=== PATIENT | male | born 1940 | race Caucasian/White ===

== ENCOUNTER 2020-02-25 12:35 | Observation (INO) | payer MEDICARE ==
[~2020-02-25] VITALS: Ht 177.8 cm; Wt 107.5 kg
[~2020-02-25 12:35] MED LIST: ASPIRIN81 MG; CENTRUM CHEWAB1 EAC1 PO; HYDROCHLOROTHIA25 MG PO; MAGNESIUM250 M1 PO; METFORMIN HCL500 M2 PO; METOPROLOL SUCC50 MG PO; OLMESARTAN MEDO20 MG PO; POTASSIUM99 M1 PO
--- OUTSIDE RECORDS SUMMARY | 2020-02-25 12:38 | XMS REPORT | Clinical Summary ---
Author Author [facility] Organization [facility] Address Unknown Phone Unavailable Care Team Providers Care Director Emergency Services Name Role Phone Julissa Banerjee MD PCP Allergies No Known Allergies Medications End Date Status Medication Sig Dispensed Refills Start Date Active furosemide (LASIX) 20 mg Take 20 mg by 0 tablet mouth 2 (two) times a day. Active metoprolol succinate XL Take 50 mg by 0 (TOPROL-XL) 50 mg 24 hr mouth 2 (two) tablet times a day. Active metFORMIN (GLUCOPHAGE) Take 500 mg 0 500 mg tablet by mouth daily with breakfast. Active terazosin (HYTRIN) 1 MG Take 1 mg by 0 capsule mouth nightly. Active loratadine (CLARITIN) 10 Take 10 mg by 0 mg tablet mouth daily. Active hydroCHLOROthiazide 0 (HYDRODIURIL) 25 MG 8 tablet Active Problems Problem Noted Date Symptomatic anemia 01/16/2018 Family History Relation Name Status Comments Father Mother Social History Date Tobacco Use Types Packs/Day Years Used Never Smoker Smokeless Tobacco: Never Used Drinks/Week oz/Week Comments Alcohol Use No Sex Assigned at Date Recorded Not on file Industry Job Start Date Occupation Not on file Not on file Not on file Travel End Travel History Travel Start No recent travel history available. Last Filed Vital Signs Not on file Plan of Treatment Health Maintenance Due Date Last Done Comments SHINGLES VACCINES (#1) 02/23/1990 65+ PNEUMOCOCCAL VACCINE 02/23/2005 (1 of 2 - PCV13) INFLUENZA VACCINE 02/08/2020 Results Not on fileafter 2019 Insurance Type Payer Benefit Subscriber ID Effective Phone Address Plan / Dates Group HMO [employer] C[employer] xxxxxxxxx 2017-P [employer] resent [place] HMO MCR ADV Advance Directives For more information, please contact: [phone] Patient Making Department Preparer Explanation Type Date Recorded Advance Directives, 01/16/2018 9:11 PM Living Will and Medical Power of Equipment Validation Specialist
--- OUTSIDE RECORDS SUMMARY | 2020-02-25 12:38 | XMS REPORT | Continuity of Care Document ---
Author Author [facility] Organization [facility] Address [address] [place] [address] Phone Unavailable Care Team Providers Care Trauma Nurse Name Role Phone Chriss PICKETT, Marcelino Costa PCP Payers Payer Name Policy Type Policy Number Effective Date Expiration Date S ource Problems Condition Name Condition Details Condition Category Status Onset Date Resolution Date Last Treatment Date Treating Clinician Comments Source Symptomatic anemia Symptomatic anemia Disease Active 2018-01-16 00:00:0 0 Antonio Balderas Allergies, Adverse Reactions, Alerts Allergy Name Allergy Type Status Severity Reaction(s) Onset Date Inacti ve Date Treating Clinician Comments Source No Known Allergies DA Active U 2019-05-18 00:00:00 [facility] Social History Social Habit Start Date Stop Date Quantity Comments Source Sex Assigned At Rafal zavala Sherrie Alcohol intake 2018-02-19 00:00:00 2018-02-19 00:00:00 Current non-drinker of alcohol (finding) Antonio Balderas Smoking Status Start Date Stop Date Source Never smoker Antonio best Medications Ordered Medication Name Filled Medication Name Start Date Stop Da te Current Medication? Ordering Clinician Indication Dosage Frequency Signature (SIG) Comments Components Source furosemide (LASIX) 20 mg tablet 2018-02-19 14:42:19 Yes 20mg Q.5D Take 20 mg by mouth 2 (two) times a day. Lorne Balderas metoprolol succinate XL (TOPROL-XL) 50 mg 24 hr tablet 2018-02-19 14:42:19 Yes 50mg Q.5D Take 50 mg by mouth 2 (two) times a day. Antonio Balderas metFORMIN (GLUCOPHAGE) 500 mg tablet 2018-02-19 14:42:19 Ye s 500mg QD Take 500 mg by mouth daily with breakfast. Antonio Balderas terazosin (HYTRIN) 1 MG capsule 2018-02-19 14:42:19 Yes 1mg QD Take 1 mg by mouth nightly. Antonio Balderas loratadine (CLARITIN) 10 mg tablet 2018-02-19 14:42:19 Yes 10mg QD Take 10 mg by mouth daily. Antonio Balderas hydroCHLOROthiazide (HYDRODIURIL) 25 MG tablet 2018-02-04 00:00: [address] Procedures This patient has no known procedures. Plan of Care Planned Activity Planned Date Details Comments Source Future Scheduled Test 2020-02-08 00:00:00 INFLUENZA VACCINE [code = INFLUENZA VACCINE] Antonio Balderas Future Scheduled Test 2005-02-23 00:00:00 65+ PNEUMOCOCCAL V ACCINE (1 of 2 - PCV13) [code = 65+ PNEUMOCOCCAL VACCINE (1 of 2 - PCV13)] Antonio Balderas Future Scheduled Test 1990-02-23 00:00:00 SHINGLES VACCINES (#1) [code = SHINGLES VACCINES (#1)] Antonio Balderas Results Test Description Test Time Test Comments Results Result Comments Source GLUBED 2019-05-27 13:08:00 Test Item GLUBED (test code = GLUBED) 94 mg/dL 74-106 N Performed by certified dorr operator at [facility] [id number] 05:48:00* Test Item Value Reference Range Interpretation Comments GLUBED (test code = GLUBED) 97 mg/dL 74-106 N Performed by certified dorr operator at [facility] [id number] 21:20:00* Test Item Value Reference Range Interpretation Comments GLUBED (test code = GLUBED) 111 mg/dL 74-106 H Performed by certified dorr operator at [facility] [id number] 16:55:00* Test Item Value Reference Range Interpretation Comments GLUBED (test code = GLUBED) 127 mg/dL 74-106 H Performed by certified dorr operator at [facility] [id number] 16:55:00* Test Item Value Reference Range Interpretation Comments GLUBED (test code = GLUBED) 111 mg/dL 74-106 H Performed by certified dorr operator at [facility] [id number] 13:36:00 RUN DATE: 05/26/19 [facility] - Lab PAGE 1 RUN TIME: 1336 Specimen Inqui ry RUN USER: INTERFACE PATIENT: JESUS MANUEL VU ACCT #: [id number] LOC: [facility] U #: [id number] AGE/SX: 79/M ROOM: 2045 RE05/18/19REG DR: Duran Daley MD : 40 BED: B DIS: STATUS: ADM IN TLOC: SPEC #: [id number] RECD: 05/25/19 STATUS: SOUSam REQ #: [id number] DANIE: 05/24/19- SUBM DR: Ramiro March MD ENTERED: 05/25/19 SP TYPE: STOMACH OTHR DR: Artur Banerjee MD ORDERED: GROSS COPIES TO: Ramiro March MD [address] [place], [place] [address] Julissa Banerjee MD [address] [place] [address] PROCEDURES: GROSS (05/09 01/25-1042) TISSUES: 1. DUODENUM, NOS - BX 2. DESCENDING COLON - POLYP 3. CECUM, NOS - POLYP 4. TRANSVERSE COLON - POLYP CLINICAL HISTORY COLLECTION DATE: 05/24/19 ANEMIA FINAL DIAGN OSIS Duodenum, biopsy: CHRONIC DUODENITIS ASSOCIATED WITH GIARDIASIS NO HISTOLOGIC FEATURES OF CELIAC DISEASE IDENTIFIED NEGATIVE FOR DY SPLASIA OR MALIGNANCY Descending colon polyp, polypectomy: HYPERPLA STIC POLYP WITH CHRONIC INACTIVE INFLAMMATION NO MICROORGANISMS, DYSPLASI A OR MALIGNANCY IDENTIFIED Cecal polyp, polypectomy: ADENOMATOU S POLYP NEGATIVE FOR HIGH GRADE DYSPLASIA OR MALIGNANCY Transverse colon polyp, polypectomy: CONTINUED ON NEXT PA GE RUN DATE: 05/26/19 [facility] - Lab PAGE 2 RUN TIME: 1336 Specimen Inquiry RUN USER: INTERFACE SPEC #: [id number] PATIENT: JESUS MANUEL VU GENE #[id number] (Continued) FINAL YODIT GNOSIS (Continued) TUBULOVILLOUS ADENOMA NEGATIVE FOR H IGH GRADE DYSPLASIA OR MALIGNANCY FA/sm D [id number] MACROS COPIC The first specimen is received in formalin, labeled with the patient's name, and identified as "duodenum", and consists of mix-pale yellow biopsy tis victor manuel measuring 0.3 cm, submitted as (1). The second specimen is received in formalin, labeled with the patient's name, and identified as "descending co vick polyp", and consists of mix-light green material measuring 0.3 cm in aggre gate compatible with fecal material and mix material/tissue measuring 0.5 cm i n aggregate. The larger biopsy fragment is bisected and the tissue is submitt ed as (2). The third specimen is received in formalin, labeled with the pa tiemaurice's name, and identified as "cecum polyp ", and consists of mix biopsy tis victor manuel measuring 0.3 cm, submitted as (3). The fourth specimen is received in formalin, labeled with the patient's name, and identified as "transverse po lyp", and consists of pink-mix nodular portions of tissue ranging from 0.4 to 0.6 cm in diameter and separate fragments of mix tissue measuring 0.3 cm in ag gregate. The base of the three larger portions are inked green, blue and tiffani k. These portions are bisected and the tissue is submitted as (4). GROSS PERFORMED AT [facility] [address] [place] [address] (p)[phone] MICROSCOPIC Intradepartmental consultation of specimen four: DMW. All of the stains, including any controls performed, stain appropriately. [place] CROSCOPIC PERFORMED AT [facility] [address] [facility] CONTINUED ON NEXT PAGE RUN DATE: 05/26/19 [facility] - Lab PAGE 3 RUN TIME: 1336 Specimen Inqui ry RUN USER: INTERFACE SPEC #: [id number] PATIENT: HORACEJESUS MANUEL SHARMA #[id number] (Continued) MICROSCOPIC (Continued) [place] [address] (P)[phone] PERFORMING SITE Diagnosis performed at: [facility], RAPHAEL [address] [facility] [place] [address] Signed SIGNATURE ON FILE Esteban Hay MD 05/26/19 1336 END OF REPORT [id number] 06:47:00* Test Item Value Reference Range Interpretation Comments GLUBED (test code = GLUBED) 117 mg/dL 74-106 H Performed by certified dorr operator at [facility] COMPREHENSIVE METABOLIC [id number] 05:35:00* Test Item Value Reference Range Interpretation Comments SODIUM (test code = NA) 142 mmol/L 136-145 N POTASSIUM (test code = K) 4.0 mmol/L 3.5-5.1 N CHLORIDE (test code = CL) 110.0 mmol/L 98-107 H CARBON DIOXIDE (test code = CO2) 26.0 mmol/L 21-32 N ANION GAP (test code = GAP) 10.0 10-20 N GLUCOSE (test code = GLU) 107 mg/dL 74-106 H BLOOD UREA NITROGEN (test code = BUN) 21 mg/dL 7-18 H GLOMERULAR FILTRATION RATE (test code = GFR) 58 mL/min >=60 Estimated GFR by using Modified MDRD formula.Chronic kidney disease is defined as either kidney damageor GFR <60 mL/min/1.73 m2 for >3 months. CREATININE (test code = CREAT) 1.20 mg/dL 0.7-1.3 N BUN/CREATININE RATIO (test code = BUN/CREA) 17.8 10-20 N TOTAL PROTEIN (test code = PROT) 5.3 gram/dL 6.4-8.2 L ALBUMIN (test code = ALB) 2.3 g/dL 3.4-5.0 L GLOBULIN (test code = GLOB) 3.0 gram/dL 2.7-4.2 N ALBUMIN/GLOBULIN RATIO (test code = A/G) 0.8 0.75-1.50 N CALCIUM (test code = CA) 8.1 mg/dL 8.5-10.1 L BILIRUBIN TOTAL (test code = BILT) 1.00 mg/dL 0.0-1.0 N SGOT/AST (test code = AST) 16 IUnit/L 15-37 N SGPT/ALT (test code = ALT) 18 IUnit/L 12-78 N ALKALINE PHOSPHATASE TOTAL (test code = ALKP) 102 IUnit/L 45-117 N Note change in reference range due to change in reagent. COMPREHENSIVE METABOLIC [id number] 05:18:00* Test Item Value Reference Range Interpretation Comments SODIUM (test code = NA) 142 mmol/L 136-145 N POTASSIUM (test code = K) 4.0 mmol/L 3.5-5.1 N CHLORIDE (test code = CL) 110.0 mmol/L 98-107 H CARBON DIOXIDE (test code = CO2) mmol/L 21-32 ANION GAP (test code = GAP) 10-20 GLUCOSE (test code = GLU) mg/dL 74-106 BLOOD UREA NITROGEN (test code = BUN) mg/dL 7-18 GLOMERULAR FILTRATION RATE (test code = GFR) mL/min >=60 CREATININE (test code = CREAT) mg/dL 0.7-1.3 BUN/CREATININE RATIO (test code = BUN/CREA) 10-20 TOTAL PROTEIN (test code = PROT) gram/dL 6.4-8.2 ALBUMIN (test code = ALB) g/dL 3.4-5.0 GLOBULIN (test code = GLOB) gram/dL 2.7-4.2 ALBUMIN/GLOBULIN RATIO (test code = A/G) 0.75-1.50 CALCIUM (test code = CA) mg/dL 8.5-10.1 BILIRUBIN TOTAL (test code = BILT) mg/dL 0.0-1.0 SGOT/AST (test code = AST) IUnit/L 15-37 SGPT/ALT (test code = ALT) IUnit/L 12-78 ALKALINE PHOSPHATASE TOTAL (test code = ALKP) IUnit/L 45-117 CBC W/AUTO [id number] 05:05:00* Test Item Value Reference Range Interpretation Comments WHITE BLOOD CELL (test code = WBC) 5.1 K/mm3 4.5-12.5 N RED BLOOD CELL (test code = RBC) 2.83 mill/mm3 4.0-5.8 L HEMOGLOBIN (test code = HGB) 8.7 gram/dL 13.0-17.5 L HEMATOCRIT (test code = HCT) 26.5 % 42.0-52.0 L MEAN CELL VOLUME (test code = MCV) 93.6 fL 80-98 N MEAN CELL HGB (test code = MCH) 30.7 picogram 27.0-33.0 N MEAN CELL HGB CONCETRATION (test code = MCHC) 32.8 gram/dL 33.0-36. 0 L RED CELL DISTRIBUTION WIDTH (test code = RDW) 18.8 % 11.6-16. 2 H RED CELL DISTRIBUTION WIDTH SD (test code = RDW-SD) 61.6 fL 37 .0-51.0 H PLATELET COUNT (test code = PLT) 253 K/mm3 150-450 N MEAN PLATELET VOLUME (test code = MPV) 9.8 fL 6.7-11.0 N NEUTROPHIL % (test code = NT%) 88.4 % 39.0-69.0 H IMMATURE GRANULOCYTE % (test code = IG%) 0.4 % 0.0-5.0 N LYMPHOCYTE % (test code = LY%) 2.0 % 25.0-55.0 L MONOCYTE % (test code = MO%) 4.9 % 0.0-10.0 N EOSINOPHIL % (test code = EO%) 3.7 % 0.0-5.0 N BASOPHIL % (test code = BA%) 0.6 % 0.0-1.0 N NUCLEATED RBC % (test code = NRBC%) 0.0 % 0-0 N NEUTROPHIL # (test code = NT#) 4.50 K/mm3 1.8-7.7 N IMMATURE GRANULOCYTE # (test code = IG#) 0.02 x10 3/uL 0-0.03 N LYMPHOCYTE # (test code = LY#) 0.10 K/mm3 1.0-5.0 L MONOCYTE # (test code = MO#) 0.25 K/mm3 0-0.8 N EOSINOPHIL # (test code = EO#) 0.19 K/mm3 0.0-0.5 N BASOPHIL # (test code = BA#) 0.03 K/mm3 0.0-0.2 N NUCLEATED RBC # (test code = NRBC#) 0.00 K/mm3 0.0-0.1 N [id number] 21:17:00* Test Item Value Reference Range Interpretation Comments GLUBED (test code = GLUBED) 115 mg/dL 74-106 H Performed by certified dorr operator at [facility] [id number] 18:38:00* Test Item Value Reference Range Interpretation Comments GLUBED (test code = GLUBED) 137 mg/dL 74-106 H Performed by certified dorr operator at [facility] [id number] 18:38:00* Test Item Value Reference Range Interpretation Comments GLUBED (test code = GLUBED) 169 mg/dL 74-106 H Performed by certified dorr operator at [facility] [id number] 13:22:00* Test Item Value Reference Range Interpretation Comments TROPONIN-I (test code = TROPI) <0.015 ng/mL 0-0.045 N [id number] 06:25:00* Test Item Value Reference Range Interpretation Comments GLUBED (test code = GLUBED) 133 mg/dL 74-106 H Performed by certified dorr operator at [facility] [id number] 21:00:00* Test Item Value Reference Range Interpretation Comments GLUBED (test code = GLUBED) 84 mg/dL 74-106 N Performed by certified dorr operator at [facility] [id number] 11:51:00* Test Item Value Reference Range Interpretation Comments GLUBED (test code = GLUBED) 115 mg/dL 74-106 H Performed by certified dorr operator at [facility] VITAMIN B12 BINDING [id number] 11:09:00* Test Item Value Reference Range Interpretation Comments VITAMIN B12 BINDING UNSATURATE (test code = [id number]) 2441 pg/mL 725-2045 H This test was developed and its performance characteristicsdetermined by [employer]. It has not been cleared orapproved by the Food and Drug Administration.Performed At: [address] [id number] Crocker MD Ph:[phone] [id number] 06:09:00* Test Item Value Reference Range Interpretation Comments GLUBED (test code = GLUBED) 118 mg/dL 74-106 H Performed by certified dorr operator at [facility] BASIC METABOLIC [id number] 05:37:00* Test Item Value Reference Range Interpretation Comments SODIUM (test code = NA) 141 mmol/L 136-145 N POTASSIUM (test code = K) 3.7 mmol/L 3.5-5.1 N CHLORIDE (test code = CL) 108.0 mmol/L 98-107 H CARBON DIOXIDE (test code = CO2) 26.0 mmol/L 21-32 N ANION GAP (test code = GAP) 10.7 10-20 N GLUCOSE (test code = GLU) 111 mg/dL 74-106 H BLOOD UREA NITROGEN (test code = BUN) 22 mg/dL 7-18 H GLOMERULAR FILTRATION RATE (test code = GFR) 58 mL/min >=60 Estimated GFR by using Modified MDRD formula.Chronic kidney disease is defined as either kidney damageor GFR <60 mL/min/1.73 m2 for >3 months. CREATININE (test code = CREAT) 1.20 mg/dL 0.7-1.3 N BUN/CREATININE RATIO (test code = BUN/CREA) 18.3 10-20 N CALCIUM (test code = CA) 7.7 mg/dL 8.5-10.1 L BASIC METABOLIC [id number] 05:29:00* Test Item Value Reference Range Interpretation Comments SODIUM (test code = NA) 141 mmol/L 136-145 N POTASSIUM (test code = K) 3.7 mmol/L 3.5-5.1 N CHLORIDE (test code = CL) 108.0 mmol/L 98-107 H CARBON DIOXIDE (test code = CO2) mmol/L 21-32 ANION GAP (test code = GAP) 10-20 GLUCOSE (test code = GLU) mg/dL 74-106 BLOOD UREA NITROGEN (test code = BUN) mg/dL 7-18 GLOMERULAR FILTRATION RATE (test code = GFR) mL/min >=60 CREATININE (test code = CREAT) mg/dL 0.7-1.3 BUN/CREATININE RATIO (test code = BUN/CREA) 10-20 CALCIUM (test code = CA) mg/dL 8.5-10.1 CBC W/AUTO [id number] 04:52:00* Test Item Value Reference Range Interpretation Comments WHITE BLOOD CELL (test code = WBC) 4.1 K/mm3 4.5-12.5 L RED BLOOD CELL (test code = RBC) 2.82 mill/mm3 4.0-5.8 L HEMOGLOBIN (test code = HGB) 8.5 gram/dL 13.0-17.5 L HEMATOCRIT (test code = HCT) 26.0 % 42.0-52.0 L MEAN CELL VOLUME (test code = MCV) 92.2 fL 80-98 N MEAN CELL HGB (test code = MCH) 30.1 picogram 27.0-33.0 N MEAN CELL HGB CONCETRATION (test code = MCHC) 32.7 gram/dL 33.0-36. 0 L RED CELL DISTRIBUTION WIDTH (test code = RDW) 18.6 % 11.6-16. 2 H RED CELL DISTRIBUTION WIDTH SD (test code = RDW-SD) 56.9 fL 37 .0-51.0 H PLATELET COUNT (test code = PLT) 258 K/mm3 150-450 RESULT VERIFIED BY REPEAT ANALYSIS MEAN PLATELET VOLUME (test code = MPV) 9.4 fL 6.7-11.0 N NEUTROPHIL % (test code = NT%) 88.0 % 39.0-69.0 H IMMATURE GRANULOCYTE % (test code = IG%) 0.7 % 0.0-5.0 N LYMPHOCYTE % (test code = LY%) 2.5 % 25.0-55.0 L MONOCYTE % (test code = MO%) 5.1 % 0.0-10.0 N EOSINOPHIL % (test code = EO%) 3.2 % 0.0-5.0 N BASOPHIL % (test code = BA%) 0.5 % 0.0-1.0 N NUCLEATED RBC % (test code = NRBC%) 0.0 % 0-0 N NEUTROPHIL # (test code = NT#) 3.59 K/mm3 1.8-7.7 N IMMATURE GRANULOCYTE # (test code = IG#) 0.03 x10 3/uL 0-0.03 N LYMPHOCYTE # (test code = LY#) 0.10 K/mm3 1.0-5.0 L MONOCYTE # (test code = MO#) 0.21 K/mm3 0-0.8 N EOSINOPHIL # (test code = EO#) 0.13 K/mm3 0.0-0.5 N BASOPHIL # (test code = BA#) 0.02 K/mm3 0.0-0.2 N NUCLEATED RBC # (test code = NRBC#) 0.00 K/mm3 0.0-0.1 N [id number] 21:11:00* Test Item Value Reference Range Interpretation Comments GLUBED (test code = GLUBED) 110 mg/dL 74-106 H Performed by certified dorr operator at [facility] [id number] 18:25:00* Test Item Value Reference Range Interpretation Comments GLUBED (test code = GLUBED) 101 mg/dL 74-106 N Performed by certified dorr operator at [facility] [id number] 12:42:00* Test Item Value Reference Range Interpretation Comments GLUBED (test code = GLUBED) 115 mg/dL 74-106 H Performed by certified dorr operator at [facility] BASIC METABOLIC [id number] 08:57:00* Test Item Value Reference Range Interpretation Comments SODIUM (test code = NA) 141 mmol/L 136-145 N POTASSIUM (test code = K) 3.6 mmol/L 3.5-5.1 N CHLORIDE (test code = CL) 107.0 mmol/L 98-107 N CARBON DIOXIDE (test code = CO2) 27.0 mmol/L 21-32 N ANION GAP (test code = GAP) 10.6 10-20 N GLUCOSE (test code = GLU) 160 mg/dL 74-106 H BLOOD UREA NITROGEN (test code = BUN) 26 mg/dL 7-18 H GLOMERULAR FILTRATION RATE (test code = GFR) 53 mL/min >=60 Estimated GFR by using Modified MDRD formula.Chronic kidney disease is defined as either kidney damageor GFR <60 mL/min/1.73 m2 for >3 months. CREATININE (test code = CREAT) 1.30 mg/dL 0.7-1.3 N BUN/CREATININE RATIO (test code = BUN/CREA) 20.6 10-20 H CALCIUM (test code = CA) 8.0 mg/dL 8.5-10.1 L BASIC METABOLIC [id number] 08:54:00* Test Item Value Reference Range Interpretation Comments SODIUM (test code = NA) 141 mmol/L 136-145 N POTASSIUM (test code = K) 3.6 mmol/L 3.5-5.1 N CHLORIDE (test code = CL) 107.0 mmol/L 98-107 N CARBON DIOXIDE (test code = CO2) mmol/L 21-32 ANION GAP (test code = GAP) 10-20 GLUCOSE (test code = GLU) mg/dL 74-106 BLOOD UREA NITROGEN (test code = BUN) mg/dL 7-18 GLOMERULAR FILTRATION RATE (test code = GFR) mL/min >=60 CREATININE (test code = CREAT) mg/dL 0.7-1.3 BUN/CREATININE RATIO (test code = BUN/CREA) 10-20 CALCIUM (test code = CA) mg/dL 8.5-10.1 HGB [id number] 08:42:00* Test Item Value Reference Range Interpretation Comments HEMOGLOBIN (test code = HGB) 9.5 gram/dL 13.0-17.5 L HEMATOCRIT (test code = HCT) 28.4 % 42.0-52.0 L [id number] 05:31:00* Test Item Value Reference Range Interpretation Comments GLUBED (test code = GLUBED) 109 mg/dL 74-106 H Performed by certified dorr operator at [facility] [id number] 20:14:00* Test Item Value Reference Range Interpretation Comments GLUBED (test code = GLUBED) 145 mg/dL 74-106 H Performed by certified dorr operator at [facility] [id number] 18:09:00* Test Item Value Reference Range Interpretation Comments GLUBED (test code = GLUBED) 108 mg/dL 74-106 H Performed by certified dorr operator at [facility] [id number] 13:39:00* Test Item Value Reference Range Interpretation Comments GLUBED (test code = GLUBED) 135 mg/dL 74-106 H Performed by certified dorr operator at [facility] BASIC METABOLIC [id number] 09:55:00* Test Item Value Reference Range Interpretation Comments SODIUM (test code = NA) 141 mmol/L 136-145 N POTASSIUM (test code = K) 3.6 mmol/L 3.5-5.1 N CHLORIDE (test code = CL) 106.0 mmol/L 98-107 N CARBON DIOXIDE (test code = CO2) 29.0 mmol/L 21-32 N ANION GAP (test code = GAP) 9.6 10-20 L GLUCOSE (test code = GLU) 154 mg/dL 74-106 H BLOOD UREA NITROGEN (test code = BUN) 32 mg/dL 7-18 H GLOMERULAR FILTRATION RATE (test code = GFR) 53 mL/min >=60 Estimated GFR by using Modified MDRD formula.Chronic kidney disease is defined as either kidney damageor GFR <60 mL/min/1.73 m2 for >3 months. CREATININE (test code = CREAT) 1.30 mg/dL 0.7-1.3 N BUN/CREATININE RATIO (test code = BUN/CREA) 24.4 10-20 H CALCIUM (test code = CA) 7.9 mg/dL 8.5-10.1 L CBC W/AUTO [id number] 09:11:00* Test Item Value Reference Range Interpretation Comments WHITE BLOOD CELL (test code = WBC) 6.4 K/mm3 4.5-12.5 N RED BLOOD CELL (test code = RBC) 2.97 mill/mm3 4.0-5.8 L HEMOGLOBIN (test code = HGB) 9.0 gram/dL 13.0-17.5 L HEMATOCRIT (test code = HCT) 28.1 % 42.0-52.0 L MEAN CELL VOLUME (test code = MCV) 94.6 fL 80-98 N MEAN CELL HGB (test code = MCH) 30.3 picogram 27.0-33.0 N MEAN CELL HGB CONCETRATION (test code = MCHC) 32.0 gram/dL 33.0-36. 0 L RED CELL DISTRIBUTION WIDTH (test code = RDW) 18.6 % 11.6-16. 2 H RED CELL DISTRIBUTION WIDTH SD (test code = RDW-SD) 55.9 fL 37 .0-51.0 H PLATELET COUNT (test code = PLT) 309 K/mm3 150-450 N MEAN PLATELET VOLUME (test code = MPV) 9.7 fL 6.7-11.0 N NEUTROPHIL % (test code = NT%) 91.3 % 39.0-69.0 H IMMATURE GRANULOCYTE % (test code = IG%) 0.8 % 0.0-5.0 N LYMPHOCYTE % (test code = LY%) 2.2 % 25.0-55.0 L MONOCYTE % (test code = MO%) 2.8 % 0.0-10.0 N EOSINOPHIL % (test code = EO%) 2.6 % 0.0-5.0 N BASOPHIL % (test code = BA%) 0.3 % 0.0-1.0 N NUCLEATED RBC % (test code = NRBC%) 0.3 % 0-0 H NEUTROPHIL # (test code = NT#) 5.87 K/mm3 1.8-7.7 N IMMATURE GRANULOCYTE # (test code = IG#) 0.05 x10 3/uL 0-0.03 H LYMPHOCYTE # (test code = LY#) 0.14 K/mm3 1.0-5.0 L MONOCYTE # (test code = MO#) 0.18 K/mm3 0-0.8 N EOSINOPHIL # (test code = EO#) 0.17 K/mm3 0.0-0.5 N BASOPHIL # (test code = BA#) 0.02 K/mm3 0.0-0.2 N NUCLEATED RBC # (test code = NRBC#) 0.02 K/mm3 0.0-0.1 N MANUAL DIFF REQUIRED (test code = MDIFF) NO [id number] 06:49:00* Test Item Value Reference Range Interpretation Comments GLUBED (test code = GLUBED) 165 mg/dL 74-106 H Performed by certified dorr operator at [facility] [id number] 20:39:00* Test Item Value Reference Range Interpretation Comments GLUBED (test code = GLUBED) 171 mg/dL 74-106 H Performed by certified dorr operator at [facility] [id number] 16:57:00* Test Item Value Reference Range Interpretation Comments GLUBED (test code = GLUBED) 130 mg/dL 74-106 H Performed by certified dorr operator at [facility] [id number] 16:57:00* Test Item Value Reference Range Interpretation Comments GLUBED (test code = GLUBED) 155 mg/dL 74-106 H Performed by certified dorr operator at [facility] BASIC METABOLIC [id number] 13:53:00* Test Item Value Reference Range Interpretation Comments SODIUM (test code = NA) 141 mmol/L 136-145 N POTASSIUM (test code = K) 3.4 mmol/L 3.5-5.1 L CHLORIDE (test code = CL) 106.0 mmol/L 98-107 N CARBON DIOXIDE (test code = CO2) 30.0 mmol/L 21-32 N ANION GAP (test code = GAP) 8.4 10-20 L GLUCOSE (test code = GLU) 139 mg/dL 74-106 H BLOOD UREA NITROGEN (test code = BUN) 29 mg/dL 7-18 H RESULT VERIFIED BY REPEAT ANALYSIS GLOMERULAR FILTRATION RATE (test code = GFR) 53 mL/min >=60 Estimated GFR by using Modified MDRD formula.Chronic kidney disease is defined as either kidney damageor GFR <60 mL/min/1.73 m2 for >3 months. CREATININE (test code = CREAT) 1.30 mg/dL 0.7-1.3 N BUN/CREATININE RATIO (test code = BUN/CREA) 22.3 10-20 H CALCIUM (test code = CA) 8.3 mg/dL 8.5-10.1 L CBC W/AUTO [id number] 13:28:00* Test Item Value Reference Range Interpretation Comments WHITE BLOOD CELL (test code = WBC) 8.2 K/mm3 4.5-12.5 N RED BLOOD CELL (test code = RBC) 3.24 mill/mm3 4.0-5.8 L HEMOGLOBIN (test code = HGB) 9.9 gram/dL 13.0-17.5 L HEMATOCRIT (test code = HCT) 30.1 % 42.0-52.0 L MEAN CELL VOLUME (test code = MCV) 92.9 fL 80-98 N MEAN CELL HGB (test code = MCH) 30.6 picogram 27.0-33.0 N MEAN CELL HGB CONCETRATION (test code = MCHC) 32.9 gram/dL 33.0-36. 0 L RED CELL DISTRIBUTION WIDTH (test code = RDW) 18.0 % 11.6-16. 2 H RED CELL DISTRIBUTION WIDTH SD (test code = RDW-SD) 53.4 fL 37 .0-51.0 H PLATELET COUNT (test code = PLT) 340 K/mm3 150-450 N MEAN PLATELET VOLUME (test code = MPV) 10.0 fL 6.7-11.0 N NEUTROPHIL % (test code = NT%) 90.7 % 39.0-69.0 H IMMATURE GRANULOCYTE % (test code = IG%) 1.7 % 0.0-5.0 N LYMPHOCYTE % (test code = LY%) 2.4 % 25.0-55.0 L MONOCYTE % (test code = MO%) 3.2 % 0.0-10.0 N EOSINOPHIL % (test code = EO%) 1.6 % 0.0-5.0 N BASOPHIL % (test code = BA%) 0.4 % 0.0-1.0 N NUCLEATED RBC % (test code = NRBC%) 0.6 % 0-0 H NEUTROPHIL # (test code = NT#) 7.46 K/mm3 1.8-7.7 N IMMATURE GRANULOCYTE # (test code = IG#) 0.14 x10 3/uL 0-0.03 H LYMPHOCYTE # (test code = LY#) 0.20 K/mm3 1.0-5.0 L MONOCYTE # (test code = MO#) 0.26 K/mm3 0-0.8 N EOSINOPHIL # (test code = EO#) 0.13 K/mm3 0.0-0.5 N BASOPHIL # (test code = BA#) 0.03 K/mm3 0.0-0.2 N NUCLEATED RBC # (test code = NRBC#) 0.05 K/mm3 0.0-0.1 N MANUAL DIFF REQUIRED (test code = MDIFF) NO [id number] 05:50:00* Test Item Value Reference Range Interpretation Comments GLUBED (test code = GLUBED) 131 mg/dL 74-106 H Performed by certified dorr operator at [facility] [id number] 20:35:00* Test Item Value Reference Range Interpretation Comments GLUBED (test code = GLUBED) 178 mg/dL 74-106 H Performed by certified dorr operator at [facility] [id number] 20:35:00* Test Item Value Reference Range Interpretation Comments GLUBED (test code = GLUBED) 135 mg/dL 74-106 H Performed by certified dorr operator at [facility] [id number] 20:35:00* Test Item Value Reference Range Interpretation Comments GLUBED (test code = GLUBED) 138 mg/dL 74-106 H Performed by certified dorr operator at [facility] BASIC METABOLIC [id number] 14:26:00* Test Item Value Reference Range Interpretation Comments SODIUM (test code = NA) 139 mmol/L 136-145 N POTASSIUM (test code = K) 3.0 mmol/L 3.5-5.1 L CHLORIDE (test code = CL) 104.0 mmol/L 98-107 N CARBON DIOXIDE (test code = CO2) 28.0 mmol/L 21-32 N ANION GAP (test code = GAP) 10.0 10-20 N GLUCOSE (test code = GLU) 139 mg/dL 74-106 H BLOOD UREA NITROGEN (test code = BUN) 42 mg/dL 7-18 H GLOMERULAR FILTRATION RATE (test code = GFR) 53 mL/min >=60 Estimated GFR by using Modified MDRD formula.Chronic kidney disease is defined as either kidney damageor GFR <60 mL/min/1.73 m2 for >3 months. CREATININE (test code = CREAT) 1.30 mg/dL 0.7-1.3 N BUN/CREATININE RATIO (test code = BUN/CREA) 31.3 10-20 H CALCIUM (test code = CA) 8.3 mg/dL 8.5-10.1 L [id number] 14:26:00* Test Item Value Reference Range Interpretation Comments MAGNESIUM (test code = MAG) 3.0 mg/dL 1.8-2.4 H BASIC METABOLIC [id number] 14:11:00* Test Item Value Reference Range Interpretation Comments SODIUM (test code = NA) 139 mmol/L 136-145 N POTASSIUM (test code = K) 3.0 mmol/L 3.5-5.1 L CHLORIDE (test code = CL) 104.0 mmol/L 98-107 N CARBON DIOXIDE (test code = CO2) mmol/L 21-32 ANION GAP (test code = GAP) 10-20 GLUCOSE (test code = GLU) mg/dL 74-106 BLOOD UREA NITROGEN (test code = BUN) mg/dL 7-18 GLOMERULAR FILTRATION RATE (test code = GFR) mL/min >=60 CREATININE (test code = CREAT) mg/dL 0.7-1.3 BUN/CREATININE RATIO (test code = BUN/CREA) 10-20 CALCIUM (test code = CA) mg/dL 8.5-10.1 [id number] 14:11:00* Test Item Value Reference Range Interpretation Comments MAGNESIUM (test code = MAG) mg/dL 1.8-2.4 CBC W/AUTO [id number] 14:08:00* Test Item Value Reference Range Interpretation Comments WHITE BLOOD CELL (test code = WBC) 9.4 K/mm3 4.5-12.5 N RED BLOOD CELL (test code = RBC) 2.23 mill/mm3 4.0-5.8 L HEMOGLOBIN (test code = HGB) 6.9 gram/dL 13.0-17.5 L HEMATOCRIT (test code = HCT) 20.4 % 42.0-52.0 LL Results called to [id number] by V.[email or web address] 05/20/19 1406Critical results verified and read back by Nurse? Y MEAN CELL VOLUME (test code = MCV) 91.5 fL 80-98 N MEAN CELL HGB (test code = MCH) 30.9 picogram 27.0-33.0 N MEAN CELL HGB CONCETRATION (test code = MCHC) 33.8 gram/dL 33.0-36. 0 N RED CELL DISTRIBUTION WIDTH (test code = RDW) 18.1 % 11.6-16. 2 H RED CELL DISTRIBUTION WIDTH SD (test code = RDW-SD) 56.6 fL 37 .0-51.0 H PLATELET COUNT (test code = PLT) 381 K/mm3 150-450 RESULT VERIFIED BY REPEAT ANALYSIS MEAN PLATELET VOLUME (test code = MPV) 9.8 fL 6.7-11.0 N NEUTROPHIL % (test code = NT%) 91.9 % 39.0-69.0 H IMMATURE GRANULOCYTE % (test code = IG%) 2.0 % 0.0-5.0 N LYMPHOCYTE % (test code = LY%) 1.4 % 25.0-55.0 L MONOCYTE % (test code = MO%) 3.6 % 0.0-10.0 N EOSINOPHIL % (test code = EO%) 0.9 % 0.0-5.0 N BASOPHIL % (test code = BA%) 0.2 % 0.0-1.0 N NUCLEATED RBC % (test code = NRBC%) 0.5 % 0-0 H NEUTROPHIL # (test code = NT#) 8.60 K/mm3 1.8-7.7 H IMMATURE GRANULOCYTE # (test code = IG#) 0.19 x10 3/uL 0-0.03 H LYMPHOCYTE # (test code = LY#) 0.13 K/mm3 1.0-5.0 L MONOCYTE # (test code = MO#) 0.34 K/mm3 0-0.8 N EOSINOPHIL # (test code = EO#) 0.08 K/mm3 0.0-0.5 N BASOPHIL # (test code = BA#) 0.02 K/mm3 0.0-0.2 N NUCLEATED RBC # (test code = NRBC#) 0.05 K/mm3 0.0-0.1 N ACUTE HEPATITIS [id number] 10:10:00* Test Item Value Reference Range Interpretation Comments AB HEPATITIS A IGM (test code = HAVMAB) Negative Negative AG HEPAT B SURF (test code = HBSAG) Negative Negative HEPATITIS B CORE ANTIBODY,IGM (test code = HBCMAB) Negative Neg ative AB HEPATITIS C (test code = HCVAB) <0.1 0.0-0.9 INFCE Result Units: s/co ratio Negative: < 0.8 Indeterminate: 0.8 - 0.9 Positive: > 0.9 The CDC recommends that a positive HCV antibody result be followed up with a HCV Nucleic Acid Amplification test (912397).Performed At: [facility] [address] [id number] Luis Lombardo MD Ph:[phone] [id number] 06:05:00* Test Item Value Reference Range Interpretation Comments GLUBED (test code = GLUBED) 140 mg/dL 74-106 H Performed by certified dorr operator at [facility] PROTHROMBIN [id number] 05:28:00* Test Item Value Reference Range Interpretation Comments PROTHROMBIN TIME PATIENT (test code = PTP) 15.6 seconds 9.0-14.0 H INTERNATIONAL NORMAL RATIO (test code = INR) 1.3 0.8-1.2 H The therapeutic range for oral anticoagulant therapy formost indications is an international normalized ratio (INR)of between 2.0 and 3.0. The recommended therapeutic INRrange for various clinical situations is listed below: Clinical Situation INR range Pulmonary e mbolism treatment (2.0-3.0)Venous thrombosis treatmentVenous thrombosis prophylaxis (high risk surgery)Prevention of systemic embolism from: Acute myocardial infarction Valvular heart disease Atrial fibrillation Mechanical prosthetic heart valves (2.5-3.5) IS PATIENT ON ANTICOAGULANTS? [id number] 20:38:00* Test Item Value Reference Range Interpretation Comments GLUBED (test code = GLUBED) 183 mg/dL 74-106 H Performed by certified dorr operator at [facility] [id number] 19:05:00* Test Item Value Reference Range Interpretation Comments GLUBED (test code = GLUBED) 171 mg/dL 74-106 H Performed by certified dorr operator at [facility] HGB [id number] 12:08:00* Test Item Value Reference Range Interpretation Comments HEMOGLOBIN (test code = HGB) 7.6 gram/dL 13.0-17.5 L HEMATOCRIT (test code = HCT) 22.8 % 42.0-52.0 L [id number] 04:47:00* Test Item Value Reference Range Interpretation Comments TROPONIN-I (test code = TROPI) 0.068 ng/mL 0-0.045 HH RESULT VERIFIED BY REPEAT ANALYSIS COMMENTS TO MACHINE STRIPPER: COLLECT 3 HOURS AFTER PREVIOUS SAMPLEHGB [id number] 04:21:00* Test Item Value Reference Range Interpretation Comments HEMOGLOBIN (test code = HGB) 6.2 gram/dL 13.0-17.5 L HEMATOCRIT (test code = HCT) 18.5 % 42.0-52.0 LL Results called to [id number] by V.[email or web address] 05/19/19 0419Critical results verified and read back by Nurse? Y [id number] 03:40:00* Test Item Value Reference Range Interpretation Comments TROPONIN-I (test code = TROPI) 0.081 ng/mL 0-0.045 HH RESULT VERIFIED BY REPEAT ANALYSIS COMMENTS TO MACHINE STRIPPER: COLLECT 3 HOURS AFTER PREVIOUS SAMPLEFE W/TOTAL IRON BINDING CAP.2019-05-18 21:48:00* Test Item Value Reference Range Interpretation Comments SERUM IRON (test code = IRON) 102 ug/dL 50-175 N TOTAL IRON BINDING CAPACITY (test code = TIBC) 180 mcg/dL 250-450 L IRON SATURATION (test code = FESAT) 56.67 % 13-45 H [id number] 21:48:00* Test Item Value Reference Range Interpretation Comments FERRITIN (test code = INDERJIT) 1913 ng/mL 8-388 H VITAMIN B12 BINDING [id number] 21:48:00* Test Item Value Reference Range Interpretation Comments VITAMIN B12 BINDING UNSATURATE (test code = [id number]) pgram/mL 650-1340 - CT ABD PELVIS W/[id number] 20:30:00 Name: JESUS MANUEL VU [facility] : 1940 Age/S: 79 / M [address] [facility] Unit #: [id number] Loc: [place] [address] Phys: Gal Treviño MD Acct: [id number] Dis Date: Status: REG ER PHONE #: [phone] Exam Date: 05/18/20192021 FAX #: [phone] Reason: concern for GI bleed EXAMS: CPT CODE: [id number] CT ABD PELVIS W/CONT 17952 REASON FOR EXAM: concern for GI bleed EXAM ORDER DATE: 05/18/2019 6:45 PM Ordering: Gal Treviño MD Attending:Gal Treviño MD Location: PROCEDURE: - CT ABD PELVIS W/CONT COMPARISON: FINDINGS: CT images of the abdomen and pelvis were obtained with IV and without oral contrast at 5mm. Dose modulation, iterative reconstruction, and/or weight based adjustment of the MA/KV was utilized to reduce the radiation dose to as low as reasonably achievable. Intravenous contrast: 100cc of Omnipaque 370. The pancreas is grossly within normal limits. Radiopaque densities seen within the gallbladder suggestive of gallstones The kidneys are within normal limits. The colon, small bowel, and stomach are within normal limits without evidence of obstruction. The appendix is unremarkable. No evidence of free air or free fluid. Enlargement of the prostate (5.2 cm). IMPRESSION: Moderate atherosclerotic disease of the abdominal aorta. Probable cholelithiasis. Nodular contour liver suggestive of cirrhosis with splenomegaly (16 cm). Mild distention of the urinary bladder at 2030 Reported and signed by: Jh Montilla M.D. PAGE 1 Signed Report (CONTINUED) Name: JESUS MANUEL VU [facility] : 1940 Age/S: 79 / M [address] the [facility] Unit #: [id number] Loc: [place] [address] Phys: Gal Treviño MD Acct: [id number] Dis Date: Status: REG ER PHONE #: [phone] Exam Date: 05/18/20192021 FAX #: [phone] Reason: concern for GI bleed EXAMS: CPT CODE: [id number] CT ABD PELVIS W/CONT 00210 <Continued> CC: Gal Treviño MD; Julissa Banerjee MD Technologist:ROSANA BRADLEY, RT(R) CT CTDI: DLP: Trnscb Date/Time: 05/18/2019 (2029) t.SDR.VTL Orig Print D/T: S: 05/18/2019 (2032) PAGE 2 Signed Report BASIC METABOLIC [id number] 19:26:00* Test Item Value Reference Range Interpretation Comments SODIUM (test code = NA) 135 mmol/L 136-145 L POTASSIUM (test code = K) 3.4 mmol/L 3.5-5.1 L CHLORIDE (test code = CL) 100.0 mmol/L 98-107 N CARBON DIOXIDE (test code = CO2) 25.0 mmol/L 21-32 N ANION GAP (test code = GAP) 13.4 10-20 N GLUCOSE (test code = GLU) 162 mg/dL 74-106 H BLOOD UREA NITROGEN (test code = BUN) 62 mg/dL 7-18 H GLOMERULAR FILTRATION RATE (test code = GFR) 42 mL/min >=60 Estimated GFR by using Modified MDRD formula.Chronic kidney disease is defined as either kidney damageor GFR <60 mL/min/1.73 m2 for >3 months. CREATININE (test code = CREAT) 1.60 mg/dL 0.7-1.3 H BUN/CREATININE RATIO (test code = BUN/CREA) 39.0 10-20 H CALCIUM (test code = CA) 8.8 mg/dL 8.5-10.1 N [id number] 19:26:00* Test Item Value Reference Range Interpretation Comments TROPONIN-I (test code = TROPI) 0.066 ng/mL 0-0.045 HH Results called to [id number] by V.LAB.JUAN 05/18/19 1921Critical results verified and read back by Nurse? Y B-TYPE NATRIURETIC [id number] 19:10:00* Test Item Value Reference Range Interpretation Comments B-TYPE NATRIURETIC PEPTIDE (test code = BNP) 246.32 pgram/mL 0-100 H BASIC METABOLIC [id number] 18:40:00* Test Item Value Reference Range Interpretation Comments SODIUM (test code = NA) 135 mmol/L 136-145 L POTASSIUM (test code = K) 3.4 mmol/L 3.5-5.1 L CHLORIDE (test code = CL) 100.0 mmol/L 98-107 N CARBON DIOXIDE (test code = CO2) mmol/L 21-32 ANION GAP (test code = GAP) 10-20 GLUCOSE (test code = GLU) mg/dL 74-106 BLOOD UREA NITROGEN (test code = BUN) mg/dL 7-18 GLOMERULAR FILTRATION RATE (test code = GFR) mL/min >=60 CREATININE (test code = CREAT) mg/dL 0.7-1.3 BUN/CREATININE RATIO (test code = BUN/CREA) 10-20 CALCIUM (test code = CA) mg/dL 8.5-10.1 [id number] 18:40:00* Test Item Value Reference Range Interpretation Comments TROPONIN-I (test code = TROPI) ng/mL 0-0.045 CBC W/O [id number] 18:37:00* Test Item Value Reference Range Interpretation Comments WHITE BLOOD CELL (test code = WBC) 15.2 K/mm3 4.5-12.5 H RED BLOOD CELL (test code = RBC) 1.98 mill/mm3 4.0-5.8 L HEMOGLOBIN (test code = HGB) 6.4 gram/dL 13.0-17.5 L RESULTS CALLED TO [id number] BY V.LAB.KP1 05/18/19 1837 HEMATOCRIT (test code = HCT) 18.5 % 42.0-52.0 LL Results called to [id number] by V.[email or web address] 05/18/19 1836Critical results verified and read back by Nurse? Y MEAN CELL VOLUME (test code = MCV) 91.4 fL 80-98 N MEAN CELL HGB (test code = MCH) 31.8 picogram 27.0-33.0 N MEAN CELL HGB CONCETRATION (test code = MCHC) 34.8 gram/dL 33.0-36. 0 N RED CELL DISTRIBUTION WIDTH (test code = RDW) 17.2 % 11.6-16. 2 H PLATELET COUNT (test code = PLT) 534 K/mm3 150-450 H MEAN PLATELET VOLUME (test code = MPV) 10.2 fL 6.7-11.0 N - XR CHEST 1 [id number] 17:47:00 FAX: Gal Treviño MD [phone] [place]: St: REG FAX: Jasiel Everett NP [phone] Name: JESUS MANUEL VU [facility] : 1940 Age/S: 79/M [address] [facility] Unit #: [id number] Loc: [place] [address] Phys: Jasiel Everett INSTANT PRINTER OPERATOR Acct: [id number] Dis Date: Status: REG ER PHONE #: [phone] Exam Date: 05/18/2019 1726 FAX #: [phone] Reason: CHEST PAIN EXAMS: CPT CODE: [id number] XR CHEST 1 V 64504 REASON FOR EXAM: CHEST PAIN EXAM ORDER DATE: 05/18/2019 4:43 PM Ordering: Jasiel Everett NP Attending:Gal Treviño MD Location:[facility] PROCEDURE: - XR CHEST 1 V COMPARISON: FINDINGS: Portable AP frontal view of the chest obtained at 5:25 PM shows dense airspace opacity of the right upper lobe. There is no evidence of effusion. The heart size is within normal limits. Pulmonary vasculatures are unremarkable. IMPRESSION: Dense consolidation of the right upper lobe at 5890 Reported and signed by: Jh Montilla M.D. CC: Gal Treviño MD; Jasiel Everett NP Technologist: Katlyn HOFFMAN(R); Beckie Acevedo(Maris) Trnscrd Date/Time/By: 05/18/2019 (3543) : By: [place]annah.VTL Orig Print D/T: S: 05/18/2019 (2212) PAGE 1 Signed Report
[2020-02-25] MEDS ORDERED: LEVOTHYROXINE50 MCG PO (13:17)
[2020-02-25] MEDS ORDERED: TRELEGY ELLIPT1 EACH INH (13:17)
[2020-02-25] MEDS ORDERED: BENICAR20 MG PO (13:17)
[2020-02-25] MEDS ORDERED: [UNRECOGNIZED DRUG - OTHER] (13:22)
[2020-02-25 13:31] VITALS: BP 181/66
[2020-02-25 13:34] VITALS: BP 181/66
[2020-02-25 13:35] VITALS: BP 181/66
[2020-02-25 13:38] VITALS: BP 181/66
[2020-02-25 14:15] LABS: BASOPHILS % 0.5 % (0.0-1.0); EOSINOPHILS % 22.3 % (0.0-6.0); HEMATOCRIT 29.2 % (38.2-49.6); HEMOGLOBIN 9.7 g/dL (14.0-18.0); LYMPHOCYTES # (AUTO) 0.1 (1.0-3.2); LYMPHOCYTES % 2.3 % (18.0-39.1); MEAN CORPUSCULAR HGB CONC 33.2 g/dL (31-35); MEAN CORPUSCULAR VOLUME 99.3 fL (81-99); MONOCYTES # (AUTO) 0.2 (0.2-0.8); MONOCYTES % 4.5 % (4.4-11.3); NEUTROPHILS % 69.7 % (38.7-80.0); PLATELET COUNT 247 x10e3/uL (140-360); RED BLOOD COUNT 2.94 x10e6/uL (4.3-5.7); RED CELL DISTRIBUTION WIDTH 18.6 % (11.7-14.4)
[2020-02-25 14:24] LABS: INR 0.98; PROTHROMBIN TIME 13.5 seconds (11.9-14.5)
[2020-02-25 14:25] LABS: PARTIAL THROMBOPLASTIN TIME 27.5 seconds (23.8-35.5)
[2020-02-25 14:31] LABS: ANION GAP 13.7 mmol/L (8-16); CALCIUM 9.1 mg/dL (8.4-10.2); CREATININE, SERUM 1.95 mg/dL (0.72-1.25); POTASSIUM 4.7 mmol/L (3.5-5.1)
--- NOTE | 2020-02-25 14:52 | NUR ---
patient here and admitted for high creat bun and low hgb/hct. labs drawn, h and h complete, iv started, admission complete. Pt in no apprent distress, able to move around well and changed his own clothes.
--- NOTE | 2020-02-25 14:53 | NUR ---
Dr. Daley notified of patients results and waiting for orders.
[2020-02-25 15:31] VITALS: BP 151/65
[2020-02-25 17:50] LABS: EOSINOPHILS % (MANUAL) 19 % (0-7); LYMPHOCYTES % (MANUAL) 2 % (19-48); MONOCYTES % (MANUAL) 2 % (3.4-9.0); NEUTROPHILS % (MANUAL) 77 % (40-74)
[2020-02-25 17:52] LABS: PLATELET ESTIMATE ADEQUATE; POLYCHROMASIA FEW
[2020-02-25 17:53] LABS: PLATELET MORPHOLOGY COMMENT FEW GIANT
[2020-02-25 20:00] VITALS: BP 203/86
[2020-02-25] MEDS ORDERED: METOPROLOL SUCCINATE 50 MG TAB XL PO ONE (22:00)
--- NOTE | 2020-02-25 22:00 | NUR ---
Spoke with Dr. Daley regarding pt high blood pressure 190/94, 60. Received order to continue home medication and give patient a dose now of metoprolol 50mg, benicar 20mg. Medication given to patient.
[2020-02-25] MEDS ORDERED: HYDRALAZINE HCL 20 MG/ML VIAL IV PRN (22:15)
[2020-02-25] MEDS ORDERED: OLMESARTAN MEDOXOMIL 5 MG TABLET PO SCH (22:30)
[2020-02-25] MEDS: OLMESARTAN 20 MG TAB PO SCH (22:35)
[2020-02-26] VITALS (8 sets, daily range): BP systolic 117–183; BP diastolic 57–101
[2020-02-26] MEDS ORDERED: LEVOTHYROXINE SODIUM 50 MCG TAB PO SCH (06:00)
[2020-02-26] MEDS ORDERED: (Fluticasone/Umeclidin/Vilanter (Trelegy Ellipta 100-62.5-25) INH SCH (06:00)
--- NOTE | 2020-02-26 06:27 | NUR ---
H&P cc: low blood counts HPI: 80yoM, PCP , sent to hospital for low blood counts. Pt denies melena/hematochezia/blood loss/abdominal pain. States he has CAD, and plans for stent placement. PMH: hypothyroidism, HTN, CKD3 due to DM2, colonic polyps, Hx cig, CAD Pshx: tonsillecotmy, colonic polyps Allergies; see emr Fh/SH; ; hx stents Meds; see MAR ROS; no f/c/s/N/V/D/LAU/cp/sob/skin rash/confusion/vision changes/abdominal pain/leg pain v/s revd PE tired appearing anicteric ns1s2 mod bs soft nt nd no e/t skin dry flat affect a&ox3; castro labs/meds revd A/P: Macrocytic anemia- check panel CKD3 due to DM2- hab1c/lipids Obesiyt- hba1c; 1/2 portion sizes; BMI 34 HTN- cont home meds Hypothyroidism- cont synthroid; check TSH Hx cigs- f/u outpt. Hx colonic polyps- not active. prop; scd; pepcid dispo; f/u labs Duran Daley MD, PhD.
[2020-02-26] MEDS ORDERED: ZOLPIDEM TARTRATE 5 MG TAB PO PRN (06:30)
[2020-02-26] MEDS ORDERED: DOCUSATE SODIUM 100 MG CAP PO PRN (06:30)
[2020-02-26] MEDS ORDERED: ONDANSETRON HCL INJ 2MG/ML 2ML 2 MG/ML VIAL IV PRN (06:30)
[2020-02-26] MEDS ORDERED: ACETAMINOPHEN 325 MG TAB PO PRN (06:30)
[2020-02-26 07:48] LABS: BASOPHILS % 0.7 % (0.0-1.0); EOSINOPHILS # (AUTO) 0.8 (0.0-0.4); EOSINOPHILS % 17.4 % (0.0-6.0); HEMATOCRIT 29.6 % (38.2-49.6); HEMOGLOBIN 9.8 g/dL (14.0-18.0); LYMPHOCYTES # (AUTO) 0.2 (1.0-3.2); LYMPHOCYTES % 3.3 % (18.0-39.1); MEAN CORPUSCULAR HEMOGLOBIN 32.8 pg (28-32); MEAN CORPUSCULAR HGB CONC 33.1 g/dL (31-35); MONOCYTES # (AUTO) 0.2 (0.2-0.8); NEUTROPHILS # (AUTO) 3.4 (2.1-6.9); NEUTROPHILS % 73.2 % (38.7-80.0); PLATELET COUNT 244 x10e3/uL (140-360); RED BLOOD COUNT 2.99 x10e6/uL (4.3-5.7); RED CELL DISTRIBUTION WIDTH 18.2 % (11.7-14.4)
[2020-02-26 08:00] LABS: ANION GAP 14.7 mmol/L (8-16); CALCIUM 8.9 mg/dL (8.4-10.2); CREATININE, SERUM 2.03 mg/dL (0.72-1.25); POTASSIUM 4.7 mmol/L (3.5-5.1)
[2020-02-26] MEDS ORDERED: METFORMIN HCL 500 MG TAB PO SCH (08:00)
[2020-02-26 08:21] LABS: FERRITIN 948.46 ng/mL (21.81-274.66); THYROID STIMULATING HORMONE 3.378 uIU/mL (0.350-4.940)
[2020-02-26] MEDS: OLMESARTAN 20 MG TAB PO SCH (08:55)
[2020-02-26] MEDS ORDERED: METOPROLOL SUCCINATE 50 MG TAB XL PO SCH (09:00)
[2020-02-26] MEDS ORDERED: MAGNESIUM OXIDE 400 MG TAB PO SCH (09:00)
[2020-02-26] MEDS ORDERED: OLMESARTAN 20 MG TAB PO SCH (09:00)
[2020-02-26] MEDS ORDERED: ASPIRIN 81 MG CHEW TAB PO SCH (09:00)
[2020-02-26] MEDS ORDERED: HYDROCHLOROTHIAZIDE 25 MG TAB PO SCH (09:00)
[2020-02-26] MEDS ORDERED: MULTIVITAMINS/MINERALS TAB PO SCH (09:00)
[2020-02-26 14:19] LABS: BAND NEUTROPHILS % (MANUAL) 2 %; EOSINOPHILS % (MANUAL) 18 % (0-7); LYMPHOCYTES % (MANUAL) 3 % (19-48)
[2020-02-26 14:20] LABS: MONOCYTES % (MANUAL) 5 % (3.4-9.0); NEUTROPHILS % (MANUAL) 72 % (40-74); PLATELET ESTIMATE ADEQUATE
[2020-02-26 14:21] LABS: PLATELET MORPHOLOGY COMMENT NORMAL; RBC MORPHOLOGY COMMENT NORMAL
--- NOTE | 2020-02-28 22:30 | Consultation ---
DATE OF CONSULTATION: 02/25/2020 GI Consult Note REASON FOR CONSULT: Anemia, unclear etiology. HISTORY OF THE PRESENTING ILLNESS: An 80-year-old male, who has a known history of chronic anemia. He was supposed to undergo peripheral angiogram for some peripheral arterial disease. Preoperative workup revealed hemoglobin of 9.7, as a result of that, the patient was advised to get admitted in the hospital for anemia workup before he can undergo peripheral angiogram. GI is being consulted to evaluate the GI source of blood loss causing anemia. The patient is completely asymptomatic. When I reviewed the record, I found out that he has a chronic anemia. His baseline hemoglobin, however, is between 8.5 to 9.5 to 10. His anemia was evaluated by upper endoscopy as well as colonoscopy in [facility] in March and April, last year. The patient stated that on colonoscopy, some polyps were removed. No source of blood loss from the GI tract was found. It was determined later on that the patient likely has anemia of chronic disease. The patient otherwise reports not seeing any blood in the stool. No episode of any melena. Denies any abdominal pain. No chronic use of NSAIDs. No history of peptic ulcer disease. REVIEW OF SYSTEMS: Twelve point system reviewed. Symptomatology is limited as per HPI. PAST MEDICAL HISTORY: Peripheral arterial disease, asthma/COPD, hypertension, hypothyroidism, and diabetes. PAST SURGICAL HISTORY: EGD and colonoscopy in April and May, last year. SOCIAL HISTORY: No smoking, alcohol, or any illicit drug use. FAMILY HISTORY: Noncontributory. ALLERGIES: DOCUMENTED FOR STATINS. HOME MEDICATIONS: Aspirin, fluticasone inhaler, hydrochlorothiazide, levothyroxine, magnesium supplements, metformin, metoprolol, multivitamin, olmesartan, and potassium gluconate. INPATIENT MEDICATIONS: List reviewed as per AUG. PHYSICAL EXAMINATION: VITAL SIGNS: Temperature 97.9, pulse 60, respirations 18, blood pressure ranging from 151/65 to 203/86, oxygen saturation 97% on room air. GENERAL: Not in any apparent distress. HEENT: Oral mucosa is moist. Anicteric sclerae. CVS: S1-S2 regular. LUNGS: Bilaterally grossly clear. ABDOMEN: Soft, nondistended, and nontender. No palpable mass or hernia. Positive bowel sounds. EXTREMITIES: Warm. No leg edema. LABORATORY DATA: WBC 4.26, hemoglobin 9.7, hematocrit 29.2, MCV 99.3, and platelet count 247. Sodium 139, potassium 4.7, chloride 108, bicarb 22, BUN 27 and creatinine 1.95, and glucose 94. So, no imaging performed. IMPRESSION: Anemia of chronic disease, I do not suspect any gastrointestinal source of blood loss. PLAN: The patient can be discharged from GI standpoint. I will review upper endoscopy and colonoscopy report from [place]. I have given my patient my business card. I can follow him in my office within one week after discharge. Hematology consult for evaluation and management of anemia of chronic disease. I thank Dr. Duran Daley, for allowing me to participate in the care of this patient. John Cordova MD SA/RADHA /[id number]
== END 2020-02-26 15:03 | disposition home or self-care (01) ==
LOC: MED/SURG 12:35
PROVIDERS: ADMIT Internal Medicine; ATTEND Internal Medicine
DX: E03.9 Hypothyroidism, unspecified (principal); D63.8 Anemia in other chronic diseases classified elsewhere; E11.22 Type 2 diabetes mellitus with diabetic chronic kidney disease; I12.9 Hypertensive chronic kidney disease with stage 1 through stage 4 chronic kidney disease, or unspecified chronic kidney disease; N18.3 Chronic kidney disease, stage 3 (moderate); Z87.891 Personal history of nicotine dependence; E66.9 Obesity, unspecified; Z68.34 Body mass index [BMI] 34.0-34.9, adult; I25.10 Atherosclerotic heart disease of native coronary artery without angina pectoris; J44.9 Chronic obstructive pulmonary disease, unspecified; I73.9 Peripheral vascular disease, unspecified; Z11.59 Encounter for screening for other viral diseases
CPT/HCPCS: 36415 ×2; 80048 ×2; 80061; 82607; 82728; 83036; 83540; 84443; 84466; 85025 ×2; 85610; 85730; 86850; 86900; G0378 ×2; J0360

== ENCOUNTER → 2020-03-13 | Day surgery (SDC) | payer MEDICARE, OTHER ==
[2020-03-08 09:58] LABS: BASOPHILS % 0.7 % (0.0-1.0); EOSINOPHILS # (AUTO) 1.1 (0.0-0.4); EOSINOPHILS % 18.2 % (0.0-6.0); HEMATOCRIT 29.5 % (38.2-49.6); HEMOGLOBIN 9.7 g/dL (14.0-18.0); LYMPHOCYTES # (AUTO) 0.2 (1.0-3.2); LYMPHOCYTES % 3.3 % (18.0-39.1); MEAN CORPUSCULAR HEMOGLOBIN 33.6 pg (28-32); MEAN CORPUSCULAR HGB CONC 32.9 g/dL (31-35); MEAN CORPUSCULAR VOLUME 102.1 fL (81-99); MONOCYTES # (AUTO) 0.3 (0.2-0.8); MONOCYTES % 4.5 % (4.4-11.3); NEUTROPHILS # (AUTO) 4.2 (2.1-6.9); PLATELET COUNT 220 x10e3/uL (140-360); RED BLOOD COUNT 2.89 x10e6/uL (4.3-5.7); RED CELL DISTRIBUTION WIDTH 18.5 % (11.7-14.4)
[2020-03-08 10:31] LABS: ALBUMIN 4.6 g/dL (3.5-5.0); ALBUMIN/GLOBULIN RATIO 1.8 (0.8-2.0); ANION GAP 18.7 mmol/L (8-16); CALCIUM 9.6 mg/dL (8.4-10.2); CREATININE, SERUM 1.94 mg/dL (0.72-1.25); POTASSIUM 4.7 mmol/L (3.5-5.1)
--- NOTE | 2020-03-08 14:30 | NUR ---
1430 Pre interview completed per phone. with patient . Denies any s/s Covid. States will quarantine as much as possible. Aware to arrive at 6am Friday for schedule procedure time 730am LHC and peripheral angio by Dr Leo. Also aware to hold metformin 24hrs prior to procedure and take bp meds as ordered. Pt unsure of allergic name to medicine ,previous documentation of statins on hospitalization record noted. Recently Md office increased Olmesartan Medoxomil to 40mg. Unsure which med is one that is causing itching. States will bring medication bottle with him. No further questions or concerns. ds/rn
[~2020-03-13] VITALS: Ht 177.8 cm; Wt 101.2 kg
[2020-03-13] VITALS (12 sets, daily range): BP systolic 112–179; BP diastolic 59–87
[~2020-03-13] MED LIST changes: +ALPRAZOLAM 0.5 MG TAB ONE; +BENICAR20 MG PO; +DIPHENHYDRAMINE HCL 25 MG CAP ONE; +FENTANYL CITRATE/PF 100MCG/2 ML INJ ONE; +HEPARIN SOD (PORCINE) 1000 UNIT/ML 30ML ONE; +HEPARIN SOD/SOD CHLORIDE 2,000 ML ONE; +IOPAMIDOL 300MG/ML 100 ML INFUS..BTL IV ONE; +LEVOTHYROXINE50 MCG PO; +LIDOCAINE HCL 2% LOCAL 20 ML VIAL ONE; +MIDAZOLAM HCL 2 MG/2 ML VIAL ONE; +NITROGLYCERIN/D5W 200 MCG/ML 0 ML ONE; +SODIUM CHLORIDE 0.9% 1000ML 1,000 ML ONE; +TRELEGY ELLIPT1 EACH INH; +[UNRECOGNIZED DRUG - OTHER]
--- NOTE | 2020-03-13 09:14 | Operative Report ---
DATE OF PROCEDURE: 03/13/2020 SURGEON: Kalyan Leo MD INDICATIONS: 1. Coronary artery disease with angina. 2. Peripheral arterial disease with severe claudication in both lower extremities. PROCEDURES PERFORMED: 1. Left heart catheterization, selective coronary angiography. 2. Abdominal aortogram runoff to bilateral femoral arteries. 3. Conscious sedation, 35 minutes for manual removal of right groin sheath. COMPLICATIONS: None. RECOMMENDATIONS: Medical therapy versus palliative bilateral common iliac artery stent placements for claudication relief. DESCRIPTION OF PROCEDURE: Access was obtained in the right femoral artery. A 6-Slovak sheath was placed. Abdominal aortogram demonstrated severely calcified abdominal aorta, 70% right common iliac artery stenosis at the ostium, 90% left common iliac artery stenosis, 50% left external iliac, 80% right common femoral artery stenosis. Right femoral artery was completely occluded. Reconstitution level of the right popliteal artery with single-vessel peroneal runoff. Left femoral artery had 90% diffuse calcified stenosis with single-vessel runoff via the peroneal artery. Coronary angiography demonstrated 50% distal left main heavily calcified vessel, 50% to 70% proximal left anterior descending artery stenosis, 90% mid left anterior descending artery stenosis, 50% to 70% distal left anterior descending artery stenosis. Diagonal artery 99%, BRYAN-2 flow. Ostial delayed mid and distal left circumflex and obtuse marginal 80% stenosis. Right coronary artery was heavily calcified, dominant vessel, 99% mid right coronary artery stenosis. Right groin sheath removed under manual pressure. The patient discharged home as the same day. MD AHSAN Griffin/MODL /[id number]
--- NOTE | 2020-03-13 12:37 | NUR ---
Call placed to pts spouse regarding discharge @ 1300. Pts spouse stated that she can not pick him up until 1500. Will continue to monitor.
--- NOTE | 2020-03-13 13:25 | NUR ---
Pt sitting up on stretcher eating lunch provided. Tolerating well. Dressing to R groin clean/dry/intact with no s/sx hematoma/bleeding. Will continue to monitor.
--- NOTE | 2020-03-13 15:20 | NUR ---
1500 Received report from Wally Siddiqui Rn. Patient needs discharge instructions reviewed. Patient waiting for his ride. Dressing to right groin appears to be clean,dry, and intact at this time. 1520 Reviewed discharge instructions with patient. Reviewed activity restrictions, diet, follow up appointment, dressing care, discharge medication reconciliation, and what signs and symptoms to look out for: when to call the doctor and when to call 911. patient verbalized understanding and had no further questions at this time. IV to left hand removed and dressing placed per unit protocol. Dressing to left hand is clean,dry, and intact at this time.
--- NOTE | 2020-03-13 15:30 | NUR ---
Right groin dressing is clean,dry, and intact. Left hand dressing is clean,dry, and intact. Patient discharged to private vehicle via wheelchair. patient discharged with belongings. No distress noted at time of discharge.
== END | disposition home or self-care (01) ==
LOC: CATH LAB 05:25
PROVIDERS: ATTEND Internal Medicine Interventional Cardiology
DX: I25.118 Atherosclerotic heart disease of native coronary artery with other forms of angina pectoris (principal); I10 Essential (primary) hypertension; E11.9 Type 2 diabetes mellitus without complications; Z01.812 Encounter for preprocedural laboratory examination; Z11.59 Encounter for screening for other viral diseases; Z79.82 Long term (current) use of aspirin; Z79.84 Long term (current) use of oral hypoglycemic drugs; Z68.32 Body mass index [BMI] 32.0-32.9, adult
CPT/HCPCS: 36415; 75625; 75716; 80053; 85025; 93454; C1769 ×2; C1887; J2001; J2250; J3010; J7030; Q9967; U0002; 75630; 99152; 99153; J1644

== ENCOUNTER 2020-05-25 18:47 | Inpatient (IN) | payer MEDICARE ==
[~2020-05-25] VITALS: Ht 177.8 cm; Wt 101.2 kg
[~2020-05-25 18:47] MED LIST changes: -ALPRAZOLAM 0.5 MG TAB ONE; -DIPHENHYDRAMINE HCL 25 MG CAP ONE; -FENTANYL CITRATE/PF 100MCG/2 ML INJ ONE; -HEPARIN SOD (PORCINE) 1000 UNIT/ML 30ML ONE; -HEPARIN SOD/SOD CHLORIDE 2,000 ML ONE; -IOPAMIDOL 300MG/ML 100 ML INFUS..BTL IV ONE; -LIDOCAINE HCL 2% LOCAL 20 ML VIAL ONE; -MIDAZOLAM HCL 2 MG/2 ML VIAL ONE; -NITROGLYCERIN/D5W 200 MCG/ML 0 ML ONE; -SODIUM CHLORIDE 0.9% 1000ML 1,000 ML ONE
[2020-05-25] MEDS ORDERED: SODIUM CHLORIDE 0.9% 1000ML 1,000 ML IV STA (19:09)
[2020-05-25 19:23] LABS: BASOPHILS % 0.3 % (0.0-1.0); EOSINOPHILS # (AUTO) 0.5 (0.0-0.4); EOSINOPHILS % 3.2 % (0.0-6.0); HEMATOCRIT 27.5 % (38.2-49.6); HEMOGLOBIN 9.1 g/dL (14.0-18.0); LYMPHOCYTES # (AUTO) 0.1 (1.0-3.2); LYMPHOCYTES % 0.9 % (18.0-39.1); MEAN CORPUSCULAR HGB CONC 33.1 g/dL (31-35); MEAN CORPUSCULAR VOLUME 99.6 fL (81-99); MONOCYTES # (AUTO) 0.3 (0.2-0.8); MONOCYTES % 2.2 % (4.4-11.3); NEUTROPHILS # (AUTO) 12.9 (2.1-6.9); NEUTROPHILS % 92.5 % (38.7-80.0); PLATELET COUNT 402 x10e3/uL (140-360); RED BLOOD COUNT 2.76 x10e6/uL (4.3-5.7); RED CELL DISTRIBUTION WIDTH 17.2 % (11.7-14.4)
[2020-05-25 19:43] LABS: ALBUMIN 3.7 g/dL (3.5-5.0); ALBUMIN/GLOBULIN RATIO 1.2 (0.8-2.0); CALCIUM 9.2 mg/dL (8.4-10.2); CREATININE, SERUM 1.9 mg/dL (0.72-1.25)
[2020-05-25] MEDS ORDERED: SODIUM CHLORIDE 0.9% 500ML 500 ML IV STA (19:58)
[2020-05-25] MEDS: ONDANSETRON HCL INJ 2MG/ML 2ML 2 MG/ML VIAL IV PRN (21:10)
[2020-05-25 21:44] LABS: CLARITY,URINE CLOUDY (CLEAR); COLOR,URINE YELLOW (YELLOW); KETONES,URINE NEGATIVE (NEGATIVE); LEUKOCYTE ESTERASE ,URINE MODERATE (NEGATIVE); NITRITE,URINE POSITIVE (NEGATIVE); PROTEIN,URINE DIPSTICK 2+ (NEGATIVE); URINE UROBILINOGEN 0.2 mg/dL (0.2 - 1)
[2020-05-25] MEDS ORDERED: PIPERACILLIN/TAZO 4.5 GM 100 ML IV STA (21:52)
[2020-05-25 21:56] LABS: BACTERIA,URINE MANY /HPF
[2020-05-25] MEDS ORDERED: ONDANSETRON HCL INJ 2MG/ML 2ML 2 MG/ML VIAL IV PRN (22:30)
[2020-05-25] MEDS ORDERED: ASPIRIN 81 MG CHEW TAB PO ONE (22:30)
[2020-05-25] MEDS: SODIUM CHLORIDE 0.9% 1000ML 1,000 ML IV SCH (22:40)
[2020-05-25] MEDS ORDERED: MORPHINE SULFATE INJ 4 MG/ML INJ 1ML IV PRN (22:45)
[2020-05-26] VITALS (10 sets, daily range): BP systolic 100–158; BP diastolic 57–88
[2020-05-26] MEDS ORDERED: ATORVASTATIN CA20 MG PO (02:55)
[2020-05-26] MEDS ORDERED: MELOXICAM7.5 MG PO (02:55)
[2020-05-26] MEDS ORDERED: LORATADINE10 MG PO (02:55)
[2020-05-26] MEDS ORDERED: METOPROLOL SUCC50 MG PO (02:55)
[2020-05-26 05:31] LABS: BASOPHILS % 0.3 % (0.0-1.0); EOSINOPHILS # (AUTO) 0.3 (0.0-0.4); EOSINOPHILS % 2.8 % (0.0-6.0); HEMATOCRIT 24.5 % (38.2-49.6); HEMOGLOBIN 7.8 g/dL (14.0-18.0); LYMPHOCYTES # (AUTO) 0.1 (1.0-3.2); LYMPHOCYTES % 1.1 % (18.0-39.1); MEAN CORPUSCULAR HEMOGLOBIN 32.9 pg (28-32); MEAN CORPUSCULAR HGB CONC 31.8 g/dL (31-35); MEAN CORPUSCULAR VOLUME 103.4 fL (81-99); MONOCYTES # (AUTO) 0.2 (0.2-0.8); MONOCYTES % 2.5 % (4.4-11.3); NEUTROPHILS # (AUTO) 8.7 (2.1-6.9); NEUTROPHILS % 92.6 % (38.7-80.0); PLATELET COUNT 294 x10e3/uL (140-360); RED BLOOD COUNT 2.37 x10e6/uL (4.3-5.7); RED CELL DISTRIBUTION WIDTH 17.5 % (11.7-14.4)
[2020-05-26 05:50] LABS: CREATINE KINASE MB 3.9 ng/mL (0-5.0)
[2020-05-26 06:14] LABS: ANION GAP 16.4 mmol/L (8-16); CALCIUM 8.2 mg/dL (8.4-10.2); CREATININE, SERUM 1.85 mg/dL (0.72-1.25); POTASSIUM 4.4 mmol/L (3.5-5.1)
[2020-05-26 07:02] LABS: CHOL/HDL RATIO 4.3 (3.9-4.7)
[2020-05-26] MEDS ORDERED: IOPAMIDOL 370 MG/ML 200 ML INFUS..BTL INJ ONE (07:03)
[2020-05-26] MEDS ORDERED: SODIUM CHLORIDE 0.9% 100 ML ONE (07:03)
[2020-05-26 08:29] LABS: EOSINOPHILS % (MANUAL) 5 % (0-7); LYMPHOCYTES % (MANUAL) 2 % (19-48); MONOCYTES % (MANUAL) 3 % (3.4-9.0); NEUTROPHILS % (MANUAL) 90 % (40-74)
[2020-05-26 08:30] LABS: ANISOCYTOSIS SLIGHT; PLATELET ESTIMATE ADEQUATE
[2020-05-26 08:31] LABS: PLATELET MORPHOLOGY COMMENT RARE EDTA CLUMPING; POLYCHROMASIA FEW; RBC MORPHOLOGY COMMENT ABNORMAL
[2020-05-26] MEDS ORDERED: FAMOTIDINE 20 MG/2 ML VIAL IV SCH (09:00)
[2020-05-26] MEDS: PIPER-TAZ 3.375 GM 50 ML IV SCH ×2 (09:57→17:02)
[2020-05-26] MEDS: SODIUM CHLORIDE 0.9% 1000ML 1,000 ML IV SCH ×2 (09:57→17:13)
[2020-05-26 10:42] LABS: FERRITIN 1933.04 ng/mL (21.81-274.66)
[2020-05-26 11:45] LABS: HEMATOCRIT 23.6 % (38.2-49.6); HEMOGLOBIN 7.5 g/dL (14.0-18.0)
[2020-05-26 11:47] LABS: CREATINE KINASE MB 3.7 ng/mL (0-5.0)
[2020-05-26] MEDS: PANTOPRAZOLE 40 MG 10ML VIAL IV SCH ×2 (12:11→20:50)
[2020-05-26] MEDS: ATORVASTATIN 20 MG TAB PO SCH (20:50)
[2020-05-26] MEDS: METOPROLOL SUCCINATE 50 MG TAB XL PO SCH (20:50)
[2020-05-26] MEDS ORDERED: FUROSEMIDE INJ 10 MG/ML 2 ML VIAL IV ONE (21:15)
[2020-05-27] VITALS: BP 138/81
[2020-05-27] MEDS: PIPER-TAZ 3.375 GM 50 ML IV SCH ×2 (01:00→09:10)
[2020-05-27 04:00] VITALS: BP 138/73
[2020-05-27 08:10] VITALS: BP 134/66
[2020-05-27 08:15] LABS: BASOPHILS % 0.4 % (0.0-1.0); EOSINOPHILS # (AUTO) 0.3 (0.0-0.4); EOSINOPHILS % 5.4 % (0.0-6.0); HEMOGLOBIN 8.2 g/dL (14.0-18.0); LYMPHOCYTES # (AUTO) 0.1 (1.0-3.2); MEAN CORPUSCULAR HEMOGLOBIN 32.9 pg (28-32); MEAN CORPUSCULAR HGB CONC 31.5 g/dL (31-35); MEAN CORPUSCULAR VOLUME 104.4 fL (81-99); MONOCYTES # (AUTO) 0.2 (0.2-0.8); MONOCYTES % 3.7 % (4.4-11.3); NEUTROPHILS # (AUTO) 4.7 (2.1-6.9); NEUTROPHILS % 87.8 % (38.7-80.0); PLATELET COUNT 298 x10e3/uL (140-360); RED BLOOD COUNT 2.49 x10e6/uL (4.3-5.7); RED CELL DISTRIBUTION WIDTH 17.7 % (11.7-14.4)
[2020-05-27 08:26] VITALS: BP 134/66
[2020-05-27 08:32] LABS: ALBUMIN 3.2 g/dL (3.5-5.0); ALBUMIN/GLOBULIN RATIO 1.2 (0.8-2.0); ANION GAP 14.9 mmol/L (8-16); CALCIUM 7.8 mg/dL (8.4-10.2); CREATININE, SERUM 1.85 mg/dL (0.72-1.25); POTASSIUM 3.9 mmol/L (3.5-5.1)
[2020-05-27] MEDS: PANTOPRAZOLE 40 MG 10ML VIAL IV SCH ×2 (08:56→21:15)
[2020-05-27] MEDS: METOPROLOL SUCCINATE 50 MG TAB XL PO SCH (08:57)
[2020-05-27] MEDS: SODIUM CHLORIDE 0.9% 1000ML 1,000 ML IV SCH ×2 (09:22→21:55)
[2020-05-27 12:03] VITALS: BP 130/64
[2020-05-27] MEDS: IRON SUCROSE 100 MG in SODIUM CHLORIDE 0.9% 100 ML 100 ML IV SCH (13:29)
[2020-05-27 16:28] VITALS: BP 141/69
[2020-05-27] MEDS: CIPROFLOXACIN 400 MG/D5W 200ML 200 ML IV SCH (18:02)
[2020-05-27] MEDS: ATORVASTATIN 20 MG TAB PO SCH (21:15)
[2020-05-27] MEDS: METRONIDAZOLE 250MG/NS 50ML 50 ML IV SCH (21:15)
[2020-05-28] VITALS (8 sets, daily range): BP systolic 118–161; BP diastolic 51–81
[2020-05-28] MEDS: CIPROFLOXACIN 400 MG/D5W 200ML 200 ML IV SCH ×2 (05:12→16:15)
[2020-05-28] MEDS: METRONIDAZOLE 250MG/NS 50ML 50 ML IV SCH ×3 (06:17→21:59)
[2020-05-28 06:59] LABS: BASOPHILS % 0.4 % (0.0-1.0); EOSINOPHILS # (AUTO) 0.2 (0.0-0.4); HEMATOCRIT 23.9 % (38.2-49.6); HEMOGLOBIN 7.7 g/dL (14.0-18.0); LYMPHOCYTES # (AUTO) 0.1 (1.0-3.2); LYMPHOCYTES % 0.8 % (18.0-39.1); MEAN CORPUSCULAR HEMOGLOBIN 33.5 pg (28-32); MEAN CORPUSCULAR HGB CONC 32.2 g/dL (31-35); MEAN CORPUSCULAR VOLUME 103.9 fL (81-99); MONOCYTES # (AUTO) 0.4 (0.2-0.8); MONOCYTES % 3.2 % (4.4-11.3); NEUTROPHILS # (AUTO) 10.4 (2.1-6.9); PLATELET COUNT 347 x10e3/uL (140-360); RED CELL DISTRIBUTION WIDTH 17.8 % (11.7-14.4)
[2020-05-28 07:16] LABS: ANION GAP 11.8 mmol/L (8-16); CALCIUM 7.9 mg/dL (8.4-10.2); CREATININE, SERUM 1.56 mg/dL (0.72-1.25); MAGNESIUM 2.1 MG/DL (1.3-2.1); POTASSIUM 3.8 mmol/L (3.5-5.1)
[2020-05-28] MEDS: PANTOPRAZOLE 40 MG 10ML VIAL IV SCH ×2 (08:19→21:58)
[2020-05-28] MEDS: METOPROLOL SUCCINATE 50 MG TAB XL PO SCH (08:19)
[2020-05-28] MEDS: IRON SUCROSE 100 MG in SODIUM CHLORIDE 0.9% 100 ML 100 ML IV SCH (09:09)
[2020-05-28] MEDS: ONDANSETRON HCL INJ 2MG/ML 2ML 2 MG/ML VIAL IV PRN (12:36)
[2020-05-28] MEDS: SODIUM CHLORIDE 0.9% 1000ML 1,000 ML IV SCH (18:24)
[2020-05-28] MEDS: ATORVASTATIN 20 MG TAB PO SCH (21:59)
[2020-05-28] MEDS ORDERED: MAGNESIUM HYDROXIDE 30 ML UDC PO ONE (22:00)
[2020-05-29] VITALS (10 sets, daily range): BP systolic 102–155; BP diastolic 56–77
[2020-05-29] MEDS: CIPROFLOXACIN 400 MG/D5W 200ML 200 ML IV SCH (04:45)
[2020-05-29] MEDS: METRONIDAZOLE 250MG/NS 50ML 50 ML IV SCH ×2 (06:18→18:37)
[2020-05-29] MEDS: METOPROLOL SUCCINATE 50 MG TAB XL PO SCH (09:00)
[2020-05-29 10:02] LABS: BASOPHILS # (AUTO) 0.1 (0.0-0.1); BASOPHILS % 0.4 % (0.0-1.0); EOSINOPHILS # (AUTO) 0.2 (0.0-0.4); EOSINOPHILS % 1.1 % (0.0-6.0); HEMATOCRIT 26.4 % (38.2-49.6); HEMOGLOBIN 8.3 g/dL (14.0-18.0); LYMPHOCYTES # (AUTO) 0.2 (1.0-3.2); MEAN CORPUSCULAR HEMOGLOBIN 33.7 pg (28-32); MEAN CORPUSCULAR HGB CONC 31.4 g/dL (31-35); MEAN CORPUSCULAR VOLUME 107.3 fL (81-99); MONOCYTES # (AUTO) 0.5 (0.2-0.8); NEUTROPHILS % 92.1 % (38.7-80.0); PLATELET COUNT 335 x10e3/uL (140-360); RED BLOOD COUNT 2.46 x10e6/uL (4.3-5.7); RED CELL DISTRIBUTION WIDTH 18.1 % (11.7-14.4)
[2020-05-29] MEDS: PANTOPRAZOLE 40 MG 10ML VIAL IV SCH ×2 (10:02→21:10)
[2020-05-29 10:19] LABS: ANION GAP 13.4 mmol/L (8-16); CALCIUM 8.2 mg/dL (8.4-10.2); CREATININE, SERUM 1.74 mg/dL (0.72-1.25); POTASSIUM 4.4 mmol/L (3.5-5.1)
[2020-05-29 10:27] LABS: INR 1.17; PROTHROMBIN TIME 15.5 seconds (11.9-14.5)
[2020-05-29 10:28] LABS: PARTIAL THROMBOPLASTIN TIME 33.2 seconds (23.8-35.5)
[2020-05-29 10:32] LABS: ALBUMIN 3.4 g/dL (3.5-5.0); BILIRUBIN,DIRECT 1.2 mg/dL (0.0-0.5)
[2020-05-29 10:40] LABS: ANISOCYTOSIS SLIGHT; EOSINOPHILS % (MANUAL) 1 % (0-7); LYMPHOCYTES % (MANUAL) 1 % (19-48); MONOCYTES % (MANUAL) 2 % (3.4-9.0); NEUTROPHILS % (MANUAL) 95 % (40-74); PLATELET ESTIMATE ADEQUATE; PLATELET MORPHOLOGY COMMENT NORMAL
[2020-05-29 10:41] LABS: POLYCHROMASIA FEW; RBC MORPHOLOGY COMMENT NORMAL
[2020-05-29] MEDS: SODIUM CHLORIDE 0.9% 1000ML 1,000 ML IV SCH (11:22)
[2020-05-29] MEDS: IRON SUCROSE 100 MG in SODIUM CHLORIDE 0.9% 100 ML 100 ML IV SCH (12:53)
[2020-05-29] MEDS ORDERED: MIDAZOLAM HCL 2 MG/2 ML VIAL ONE (14:09)
[2020-05-29] MEDS ORDERED: FENTANYL CITRATE/PF 100MCG/2 ML INJ ONE (14:09)
[2020-05-29] MEDS: MAGNESIUM HYDROXIDE 30 ML UDC PO ONE ×2 (18:52→19:18)
[2020-05-29] MEDS ORDERED: MAGNESIUM HYDROXIDE 30 ML UDC PO ONE (19:00)
[2020-05-29] MEDS: ATORVASTATIN 20 MG TAB PO SCH (21:10)
[2020-05-30] VITALS (8 sets, daily range): BP systolic 116–152; BP diastolic 59–82
[2020-05-30] MEDS ORDERED: CEFTRIAXONE SOD 1 GM/NS 50 ML 50 ML IV STA (01:31)
[2020-05-30] MEDS: METRONIDAZOLE 250MG/NS 50ML 50 ML IV SCH ×3 (02:30→18:38)
[2020-05-30] MEDS: SODIUM CHLORIDE 0.9% 1000ML 1,000 ML IV SCH ×2 (04:02→20:42)
[2020-05-30] MEDS: PANTOPRAZOLE 40 MG 10ML VIAL IV SCH ×2 (08:32→21:48)
[2020-05-30] MEDS: METOPROLOL SUCCINATE 50 MG TAB XL PO SCH (08:32)
[2020-05-30] MEDS: CLINDAMYCIN 300MG 50 ML IV SCH ×3 (08:32→21:48)
[2020-05-30] MEDS: BALSAM PERU/CASTOR OIL 60 GM OINT...G. TP SCH (08:32)
[2020-05-30] MEDS: IRON SUCROSE 100 MG in SODIUM CHLORIDE 0.9% 100 ML 100 ML IV SCH (12:54)
[2020-05-30] MEDS ORDERED: CLINDAMYCIN 300MG 50 ML IV SCH (14:00)
[2020-05-30] MEDS ORDERED: CEFTRIAXONE SOD 1 GM/NS 50 ML 50 ML IV SCH (17:00)
[2020-05-30] MEDS: ATORVASTATIN 20 MG TAB PO SCH (21:48)
[2020-05-31] VITALS (8 sets, daily range): BP systolic 92–147; BP diastolic 59–74
[2020-05-31] MEDS: METRONIDAZOLE 250MG/NS 50ML 50 ML IV SCH ×3 (03:13→16:31)
[2020-05-31 05:50] LABS: BASOPHILS % 0.4 % (0.0-1.0); EOSINOPHILS # (AUTO) 0.2 (0.0-0.4); EOSINOPHILS % 3.2 % (0.0-6.0); HEMATOCRIT 23.1 % (38.2-49.6); HEMOGLOBIN 7.4 g/dL (14.0-18.0); LYMPHOCYTES # (AUTO) 0.1 (1.0-3.2); LYMPHOCYTES % 1.2 % (18.0-39.1); MEAN CORPUSCULAR HEMOGLOBIN 32.9 pg (28-32); MEAN CORPUSCULAR VOLUME 102.7 fL (81-99); MONOCYTES # (AUTO) 0.3 (0.2-0.8); MONOCYTES % 3.9 % (4.4-11.3); NEUTROPHILS # (AUTO) 6.8 (2.1-6.9); NEUTROPHILS % 90.2 % (38.7-80.0); PLATELET COUNT 345 x10e3/uL (140-360); RED BLOOD COUNT 2.25 x10e6/uL (4.3-5.7); RED CELL DISTRIBUTION WIDTH 18.3 % (11.7-14.4)
[2020-05-31 06:12] LABS: ALBUMIN 2.9 g/dL (3.5-5.0); ANION GAP 12.8 mmol/L (8-16); CALCIUM 8.1 mg/dL (8.4-10.2); CREATININE, SERUM 1.56 mg/dL (0.72-1.25); POTASSIUM 3.8 mmol/L (3.5-5.1)
[2020-05-31] MEDS: CLINDAMYCIN 300MG 50 ML IV SCH (06:20)
[2020-05-31] MEDS: SENNOSIDES 8.6 MG TAB PO SCH ×2 (09:11→21:00)
[2020-05-31] MEDS: FUROSEMIDE INJ 10 MG/ML 2 ML VIAL IV SCH ×2 (09:11→16:31)
[2020-05-31] MEDS: TRAMADOL HCL 50 MG TAB PO SCH ×3 (09:11→21:17)
[2020-05-31] MEDS: PANTOPRAZOLE 40 MG 10ML VIAL IV SCH ×2 (09:12→21:17)
[2020-05-31] MEDS: DOCUSATE SODIUM 100 MG CAP PO SCH ×2 (09:12→16:31)
[2020-05-31] MEDS: METOPROLOL SUCCINATE 50 MG TAB XL PO SCH (09:13)
[2020-05-31] MEDS: BALSAM PERU/CASTOR OIL 60 GM OINT...G. TP SCH (09:13)
[2020-05-31] MEDS: IRON SUCROSE 100 MG in SODIUM CHLORIDE 0.9% 100 ML 100 ML IV SCH (11:30)
[2020-05-31] MEDS: SODIUM CHLORIDE 0.9% 1000ML 1,000 ML IV SCH (14:03)
[2020-05-31] MEDS: ATORVASTATIN 20 MG TAB PO SCH (21:17)
[2020-06-01] VITALS (8 sets, daily range): BP systolic 127–162; BP diastolic 62–77
[2020-06-01] MEDS: METRONIDAZOLE 250MG/NS 50ML 50 ML IV SCH ×3 (01:41→16:28)
[2020-06-01] MEDS: TRAMADOL HCL 50 MG TAB PO SCH ×3 (05:21→23:07)
[2020-06-01] MEDS: FUROSEMIDE INJ 10 MG/ML 2 ML VIAL IV SCH ×2 (05:21→16:28)
[2020-06-01] MEDS: SODIUM CHLORIDE 0.9% 1000ML 1,000 ML IV SCH ×2 (06:02→22:42)
[2020-06-01] MEDS ORDERED: CEFEPIME HCL 1 GM VIAL IV SCH (09:00)
[2020-06-01] MEDS: CEFEPIME 1GM/NS 0.9% 50 ML 50 ML IV SCH (09:17)
[2020-06-01] MEDS: SENNOSIDES 8.6 MG TAB PO SCH ×2 (09:18→21:00)
[2020-06-01] MEDS: DOCUSATE SODIUM 100 MG CAP PO SCH ×2 (09:18→16:28)
[2020-06-01] MEDS: PANTOPRAZOLE 40 MG 10ML VIAL IV SCH ×2 (09:18→23:07)
[2020-06-01] MEDS: BALSAM PERU/CASTOR OIL 60 GM OINT...G. TP SCH (09:20)
[2020-06-01] MEDS: METOPROLOL SUCCINATE 50 MG TAB XL PO SCH (09:20)
[2020-06-01] MEDS: LORATADINE 10 MG TAB PO SCH (10:22)
[2020-06-01] MEDS: IRON SUCROSE 100 MG in SODIUM CHLORIDE 0.9% 100 ML 100 ML IV SCH (11:00)
[2020-06-01] MEDS ORDERED: ONDANSETRON HCL 4 MG ORAL DISINTEGRATING TAB PO PRN (17:45)
[2020-06-01] MEDS: ATORVASTATIN 20 MG TAB PO SCH (23:07)
[2020-06-02] VITALS (8 sets, daily range): BP systolic 108–165; BP diastolic 43–82
[2020-06-02] MEDS: METRONIDAZOLE 250MG/NS 50ML 50 ML IV SCH ×3 (01:24→18:05)
[2020-06-02] MEDS: TRAMADOL HCL 50 MG TAB PO SCH ×3 (05:08→21:40)
[2020-06-02] MEDS: FUROSEMIDE INJ 10 MG/ML 2 ML VIAL IV SCH ×2 (05:08→18:05)
[2020-06-02] MEDS: DOCUSATE SODIUM 100 MG CAP PO SCH ×2 (09:00→17:00)
[2020-06-02] MEDS: SENNOSIDES 8.6 MG TAB PO SCH ×2 (09:00→20:53)
[2020-06-02] MEDS: CEFEPIME 1GM/NS 0.9% 50 ML 50 ML IV SCH (09:19)
[2020-06-02] MEDS: LORATADINE 10 MG TAB PO SCH (09:19)
[2020-06-02] MEDS: PANTOPRAZOLE 40 MG 10ML VIAL IV SCH ×2 (09:19→20:53)
[2020-06-02] MEDS: METOPROLOL SUCCINATE 50 MG TAB XL PO SCH (09:21)
[2020-06-02] MEDS: BALSAM PERU/CASTOR OIL 60 GM OINT...G. TP SCH (12:25)
[2020-06-02] MEDS: IRON SUCROSE 100 MG in SODIUM CHLORIDE 0.9% 100 ML 100 ML IV SCH (13:01)
[2020-06-02 14:07] LABS: BASOPHILS % 0.7 % (0.0-1.0); EOSINOPHILS # (AUTO) 0.3 (0.0-0.4); EOSINOPHILS % 4.4 % (0.0-6.0); HEMATOCRIT 23.6 % (38.2-49.6); HEMOGLOBIN 7.6 g/dL (14.0-18.0); LYMPHOCYTES # (AUTO) 0.1 (1.0-3.2); LYMPHOCYTES % 1.5 % (18.0-39.1); MEAN CORPUSCULAR HEMOGLOBIN 33.6 pg (28-32); MEAN CORPUSCULAR HGB CONC 32.2 g/dL (31-35); MEAN CORPUSCULAR VOLUME 104.4 fL (81-99); MONOCYTES # (AUTO) 0.4 (0.2-0.8); MONOCYTES % 5.9 % (4.4-11.3); NEUTROPHILS # (AUTO) 5.1 (2.1-6.9); PLATELET COUNT 281 x10e3/uL (140-360); RED BLOOD COUNT 2.26 x10e6/uL (4.3-5.7); RED CELL DISTRIBUTION WIDTH 18.1 % (11.7-14.4)
[2020-06-02 14:22] LABS: ANION GAP 13.9 mmol/L (8-16); CALCIUM 8.2 mg/dL (8.4-10.2); CREATININE, SERUM 1.56 mg/dL (0.72-1.25); POTASSIUM 3.9 mmol/L (3.5-5.1)
[2020-06-02] MEDS: SODIUM CHLORIDE 0.9% 1000ML 1,000 ML IV SCH (15:22)
[2020-06-02] MEDS: ATORVASTATIN 20 MG TAB PO SCH (20:53)
[2020-06-03] VITALS (7 sets, daily range): BP systolic 117–164; BP diastolic 50–71
[2020-06-03] MEDS: METRONIDAZOLE 250MG/NS 50ML 50 ML IV SCH ×3 (01:38→18:18)
[2020-06-03] MEDS: TRAMADOL HCL 50 MG TAB PO SCH ×3 (05:43→22:15)
[2020-06-03] MEDS: FUROSEMIDE INJ 10 MG/ML 2 ML VIAL IV SCH ×2 (05:43→18:18)
[2020-06-03] MEDS ORDERED: NEOSTIGMINE 1 MG/ML 10ML VIAL ONE (07:43)
[2020-06-03] MEDS ORDERED: BUPIVACAINE 0.25% 30ML SDV ONE (07:43)
[2020-06-03] MEDS: SODIUM CHLORIDE 0.9% 1000ML 1,000 ML IV SCH ×2 (08:02→22:16)
[2020-06-03] MEDS: PANTOPRAZOLE 40 MG 10ML VIAL IV SCH ×2 (08:34→20:49)
[2020-06-03] MEDS: CEFEPIME 1GM/NS 0.9% 50 ML 50 ML IV SCH (09:00)
[2020-06-03] MEDS: DOCUSATE SODIUM 100 MG CAP PO SCH ×2 (09:00→17:00)
[2020-06-03] MEDS ORDERED: ACETAMINOPHEN/CODEINE 300MG - 30MG TAB PO PRN (11:45)
[2020-06-03] MEDS: METOPROLOL SUCCINATE 50 MG TAB XL PO SCH (12:30)
[2020-06-03] MEDS: LORATADINE 10 MG TAB PO SCH (12:30)
[2020-06-03] MEDS: BALSAM PERU/CASTOR OIL 60 GM OINT...G. TP SCH (12:34)
[2020-06-03] MEDS ORDERED: PROPOFOL IV EMULSION 10 MG/ML 20 ML VIAL ONE (12:53)
[2020-06-03] MEDS ORDERED: DEXAMETHASONE SOD PHOS INJ 4 MG/ML VIAL ONE (12:53)
[2020-06-03] MEDS ORDERED: SEVOFLURANE INHAL SOLN 250 ML PEN BTL ONE (12:53)
[2020-06-03] MEDS ORDERED: ROCURONIUM BROMIDE 10 MG/ML 5ML VIAL IV ONE (12:53)
[2020-06-03] MEDS ORDERED: LIDOCAINE HCL 2% LOCAL INJ 5 ML SDV VIAL INJ ONE (12:53)
[2020-06-03] MEDS ORDERED: ONDANSETRON HCL INJ 2MG/ML 2ML 2 MG/ML VIAL ONE (12:53)
[2020-06-03] MEDS: IRON SUCROSE 100 MG in SODIUM CHLORIDE 0.9% 100 ML 100 ML IV SCH (13:03)
[2020-06-03] MEDS ORDERED: FENTANYL CITRATE/PF 100MCG/2 ML INJ ONE (13:12)
[2020-06-03] MEDS: ATORVASTATIN 20 MG TAB PO SCH (20:49)
[2020-06-04] VITALS (8 sets, daily range): BP systolic 102–156; BP diastolic 49–85
[2020-06-04] MEDS: METRONIDAZOLE 250MG/NS 50ML 50 ML IV SCH ×3 (02:09→18:00)
[2020-06-04] MEDS: TRAMADOL HCL 50 MG TAB PO SCH ×3 (06:34→22:10)
[2020-06-04] MEDS: FUROSEMIDE INJ 10 MG/ML 2 ML VIAL IV SCH ×2 (06:34→18:00)
[2020-06-04 08:57] LABS: BASOPHILS # (AUTO) 0.1 (0.0-0.1); BASOPHILS % 0.8 % (0.0-1.0); EOSINOPHILS # (AUTO) 0.2 (0.0-0.4); EOSINOPHILS % 3.2 % (0.0-6.0); HEMATOCRIT 24.2 % (38.2-49.6); HEMOGLOBIN 7.6 g/dL (14.0-18.0); LYMPHOCYTES # (AUTO) 0.2 (1.0-3.2); LYMPHOCYTES % 2.7 % (18.0-39.1); MEAN CORPUSCULAR HEMOGLOBIN 32.9 pg (28-32); MEAN CORPUSCULAR HGB CONC 31.4 g/dL (31-35); MEAN CORPUSCULAR VOLUME 104.8 fL (81-99); MONOCYTES # (AUTO) 0.3 (0.2-0.8); MONOCYTES % 4.5 % (4.4-11.3); NEUTROPHILS # (AUTO) 5.2 (2.1-6.9); NEUTROPHILS % 86.3 % (38.7-80.0); PLATELET COUNT 267 x10e3/uL (140-360); RED BLOOD COUNT 2.31 x10e6/uL (4.3-5.7); RED CELL DISTRIBUTION WIDTH 18.6 % (11.7-14.4)
[2020-06-04] MEDS: PANTOPRAZOLE 40 MG 10ML VIAL IV SCH ×2 (08:57→21:15)
[2020-06-04] MEDS: CEFEPIME 1GM/NS 0.9% 50 ML 50 ML IV SCH (08:57)
[2020-06-04] MEDS: LORATADINE 10 MG TAB PO SCH (08:57)
[2020-06-04] MEDS: METOPROLOL SUCCINATE 50 MG TAB XL PO SCH (09:00)
[2020-06-04] MEDS: DOCUSATE SODIUM 100 MG CAP PO SCH ×3 (09:00→17:09)
[2020-06-04] MEDS: BALSAM PERU/CASTOR OIL 60 GM OINT...G. TP SCH (09:09)
[2020-06-04 09:17] LABS: ALBUMIN 2.9 g/dL (3.5-5.0); ANION GAP 15.9 mmol/L (8-16); CALCIUM 8.2 mg/dL (8.4-10.2); CREATININE, SERUM 1.86 mg/dL (0.72-1.25); POTASSIUM 3.9 mmol/L (3.5-5.1)
[2020-06-04] MEDS: IRON SUCROSE 100 MG in SODIUM CHLORIDE 0.9% 100 ML 100 ML IV SCH (10:58)
[2020-06-04] MEDS: SODIUM CHLORIDE 0.9% 1000ML 1,000 ML IV SCH (17:22)
[2020-06-04] MEDS: ATORVASTATIN 20 MG TAB PO SCH (21:15)
[2020-06-04] MEDS: BACITRACIN ZINC 0.9GM TP SCH (21:15)
[2020-06-05] VITALS (8 sets, daily range): BP systolic 151–175; BP diastolic 65–91
[2020-06-05] MEDS ORDERED: BISACODYL 5 MG TAB EC PO ONE ×3 (00:15→14:15)
[2020-06-05] MEDS ORDERED: TRAMADOL HCL 50 MG TAB PO PRN (00:45)
[2020-06-05] MEDS: METRONIDAZOLE 250MG/NS 50ML 50 ML IV SCH ×3 (02:34→21:13)
[2020-06-05 06:19] LABS: BASOPHILS % 0.5 % (0.0-1.0); EOSINOPHILS # (AUTO) 0.1 (0.0-0.4); HEMATOCRIT 27.5 % (38.2-49.6); HEMOGLOBIN 8.9 g/dL (14.0-18.0); LYMPHOCYTES # (AUTO) 0.1 (1.0-3.2); LYMPHOCYTES % 2.2 % (18.0-39.1); MEAN CORPUSCULAR HEMOGLOBIN 33.3 pg (28-32); MEAN CORPUSCULAR HGB CONC 32.4 g/dL (31-35); MONOCYTES # (AUTO) 0.3 (0.2-0.8); MONOCYTES % 4.4 % (4.4-11.3); NEUTROPHILS # (AUTO) 5.8 (2.1-6.9); NEUTROPHILS % 89.5 % (38.7-80.0); PLATELET COUNT 265 x10e3/uL (140-360); RED BLOOD COUNT 2.67 x10e6/uL (4.3-5.7)
[2020-06-05] MEDS: FUROSEMIDE INJ 10 MG/ML 2 ML VIAL IV SCH ×2 (06:28→18:46)
[2020-06-05 06:54] LABS: CALCIUM 8.5 mg/dL (8.4-10.2); CREATININE, SERUM 1.65 mg/dL (0.72-1.25)
[2020-06-05] MEDS: SODIUM CHLORIDE 0.9% 1000ML 1,000 ML IV SCH (10:02)
[2020-06-05 11:24] LABS: BAND NEUTROPHILS % (MANUAL) 5 %; LYMPHOCYTES % (MANUAL) 4 % (19-48); MONOCYTES % (MANUAL) 2 % (3.4-9.0); NEUTROPHILS % (MANUAL) 89 % (40-74)
[2020-06-05] MEDS: LORATADINE 10 MG TAB PO SCH (12:15)
[2020-06-05] MEDS: DOCUSATE SODIUM 100 MG CAP PO SCH ×2 (12:15→18:46)
[2020-06-05] MEDS: METOPROLOL SUCCINATE 50 MG TAB XL PO SCH (12:16)
[2020-06-05] MEDS: NIFEDIPINE CR 30 MG TAB PO SCH ×2 (12:16→20:51)
[2020-06-05] MEDS: BALSAM PERU/CASTOR OIL 60 GM OINT...G. TP SCH (12:17)
[2020-06-05] MEDS: BACITRACIN ZINC 0.9GM TP SCH ×2 (12:17→20:52)
[2020-06-05] MEDS ORDERED: VENELEX OINTMEN60 GM TP (13:15)
[2020-06-05] MEDS ORDERED: LORATADINE10 MG PO (13:15)
[2020-06-05] MEDS ORDERED: NIFEDIPINE ER30 M1 PO (13:15)
[2020-06-05] MEDS ORDERED: BACITRACIN ZIN1 EACH TP (13:15)
[2020-06-05] MEDS ORDERED: ULTRAM 50MG50 MG PO (13:15)
[2020-06-05] MEDS ORDERED: COLACE100 MG PO (13:15)
[2020-06-05] MEDS ORDERED: PANTOPRAZOLE SO40 MG PO (13:15)
[2020-06-05] MEDS ORDERED: CEFUROXIME250 MG PO (13:15)
[2020-06-05] MEDS: PANTOPRAZOLE 40 MG 10ML VIAL IV SCH ×2 (13:45→20:51)
[2020-06-05] MEDS: CEFEPIME 1GM/NS 0.9% 50 ML 50 ML IV SCH (14:51)
[2020-06-05] MEDS: IRON SUCROSE 100 MG in SODIUM CHLORIDE 0.9% 100 ML 100 ML IV SCH (15:55)
[2020-06-05] MEDS: ATORVASTATIN 20 MG TAB PO SCH (20:51)
[2020-06-06 00:45] VITALS: BP 135/63
[2020-06-06] MEDS ORDERED: BISACODYL 5 MG TAB EC PO ONE ×2 (02:00→04:00)
[2020-06-06] MEDS: METRONIDAZOLE 250MG/NS 50ML 50 ML IV SCH ×2 (02:00→10:25)
[2020-06-06] MEDS: SODIUM CHLORIDE 0.9% 1000ML 1,000 ML IV SCH (02:04)
[2020-06-06] MEDS: FUROSEMIDE INJ 10 MG/ML 2 ML VIAL IV SCH (05:15)
[2020-06-06 05:21] VITALS: BP 142/95
[2020-06-06 07:23] VITALS: BP 142/95
[2020-06-06] MEDS ORDERED: CIPRO500 MG PO (07:23)
[2020-06-06] MEDS: CEFEPIME 1GM/NS 0.9% 50 ML 50 ML IV SCH (08:27)
[2020-06-06] MEDS: LORATADINE 10 MG TAB PO SCH (08:27)
[2020-06-06] MEDS: DOCUSATE SODIUM 100 MG CAP PO SCH (08:27)
[2020-06-06] MEDS: METOPROLOL SUCCINATE 50 MG TAB XL PO SCH (08:28)
[2020-06-06] MEDS: BALSAM PERU/CASTOR OIL 60 GM OINT...G. TP SCH (08:28)
[2020-06-06] MEDS: BACITRACIN ZINC 0.9GM TP SCH (08:28)
[2020-06-06] MEDS: NIFEDIPINE CR 30 MG TAB PO SCH (08:28)
[2020-06-06] MEDS: PANTOPRAZOLE 40 MG 10ML VIAL IV SCH (08:31)
[2020-06-06 09:24] VITALS: BP 165/64
[2020-06-06] MEDS: IRON SUCROSE 100 MG in SODIUM CHLORIDE 0.9% 100 ML 100 ML IV SCH (09:50)
[2020-06-06 12:46] VITALS: BP 166/64
== END 2020-06-06 14:28 | disposition home or self-care (01) | DRG 982 ==
LOC: ER 19:30 → ERHOLD 22:32 → MED/SURG3 05-26 00:57
PROVIDERS: ADMIT Internal Medicine; ATTEND Internal Medicine
PROC: 0FB23ZX Excision of Left Lobe Liver, Percutaneous Approach, Diagnostic (ICD-10-PCS; 2020-05-29)
PROC: 0VTB0ZZ Resection of Left Testis, Open Approach (ICD-10-PCS; principal; 2020-06-03 09:00)
PROC: 0VTTXZZ Resection of Prepuce, External Approach (ICD-10-PCS; 2020-06-03 09:00)
DX: K72.00 Acute and subacute hepatic failure without coma (principal); N39.0 Urinary tract infection, site not specified; K51.312 Ulcerative (chronic) rectosigmoiditis with intestinal obstruction; N45.3 Epididymo-orchitis; J43.2 Centrilobular emphysema; E11.22 Type 2 diabetes mellitus with diabetic chronic kidney disease; E03.9 Hypothyroidism, unspecified; D53.9 Nutritional anemia, unspecified; I12.9 Hypertensive chronic kidney disease with stage 1 through stage 4 chronic kidney disease, or unspecified chronic kidney disease; N18.30 Chronic kidney disease, stage 3 unspecified; I25.2 Old myocardial infarction; I25.10 Atherosclerotic heart disease of native coronary artery without angina pectoris; E78.5 Hyperlipidemia, unspecified; Z88.8 Allergy status to other drugs, medicaments and biological substances; Z20.828 Contact with and (suspected) exposure to other viral communicable diseases; Z86.010 Personal history of colon polyps; Z87.891 Personal history of nicotine dependence; E66.9 Obesity, unspecified; Z68.34 Body mass index [BMI] 34.0-34.9, adult; D17.79 Benign lipomatous neoplasm of other sites; N49.2 Inflammatory disorders of scrotum; A63.0 Anogenital (venereal) warts; N40.0 Benign prostatic hyperplasia without lower urinary tract symptoms; N26.1 Atrophy of kidney (terminal); B96.5 Pseudomonas (aeruginosa) (mallei) (pseudomallei) as the cause of diseases classified elsewhere
CPT/HCPCS: 36415; 47000; 71045; 71275; 74022; 74174; 74470; 76870; 76942; 80048; 80053; 80061; 80076; 81001; 82105; 82270; 82378; 82550; 82553; 82607; 82728; 82746; 82948; 83036; 83540; 83605; 83690; 83735; 83880; 84152; 84466; 84484; 85014; 85018; 85025; 85045; 85610; 85730; 86301; 86850; 86900; 86920; 87040; 87071; 87075; 87186; 87205; 88304; 88305; 88307; 88313; 88342; 93005; 93976; 96360; 99251; 99285; J0692; J0696; J1100; J1756; J1940; J2001; J2250; J2405; J2543; J2710; J3010; J7030; J7040; J7050; Q9967; U0002

== ENCOUNTER 2020-06-07 08:18 | Inpatient (IN) | payer MEDICARE ==
[~2020-06-07] VITALS: Ht 177.8 cm; Wt 101.2 kg
[~2020-06-07 08:18] MED LIST changes: +ATORVASTATIN CA20 MG PO; +BACITRACIN ZIN1 EACH TP; +CEFUROXIME250 MG PO; +CIPRO500 MG PO; +COLACE100 MG PO; +LORATADINE10 MG PO; +MELOXICAM7.5 MG PO; +NIFEDIPINE ER30 M1 PO; +PANTOPRAZOLE SO40 MG PO; +ULTRAM 50MG50 MG PO; +VENELEX OINTMEN60 GM TP
[2020-06-07] MEDS ORDERED: MORPHINE SULFATE INJ 2 MG/ML SYR IV STA (08:41)
[2020-06-07] MEDS ORDERED: ONDANSETRON HCL INJ 2MG/ML 2ML 2 MG/ML VIAL IV STA (08:41)
[2020-06-07 09:07] LABS: BASOPHILS # (AUTO) 0.1 (0.0-0.1); BASOPHILS % 0.6 % (0.0-1.0); EOSINOPHILS # (AUTO) 0.2 (0.0-0.4); EOSINOPHILS % 1.8 % (0.0-6.0); HEMATOCRIT 27.8 % (38.2-49.6); LYMPHOCYTES # (AUTO) 0.1 (1.0-3.2); LYMPHOCYTES % 1.7 % (18.0-39.1); MEAN CORPUSCULAR HGB CONC 32.4 g/dL (31-35); MEAN CORPUSCULAR VOLUME 101.8 fL (81-99); MONOCYTES # (AUTO) 0.4 (0.2-0.8); MONOCYTES % 4.5 % (4.4-11.3); NEUTROPHILS # (AUTO) 7.3 (2.1-6.9); NEUTROPHILS % 90.1 % (38.7-80.0); PLATELET COUNT 303 x10e3/uL (140-360); RED BLOOD COUNT 2.73 x10e6/uL (4.3-5.7); RED CELL DISTRIBUTION WIDTH 19.8 % (11.7-14.4)
[2020-06-07] MEDS ORDERED: MORPHINE SULFATE INJ 4 MG/ML INJ 1ML IV PRN (09:15)
[2020-06-07] MEDS ORDERED: ONDANSETRON HCL INJ 2MG/ML 2ML 2 MG/ML VIAL IV PRN (09:15)
[2020-06-07 09:31] LABS: INR 1.03
[2020-06-07 09:32] LABS: PARTIAL THROMBOPLASTIN TIME 34.4 seconds (23.8-35.5)
[2020-06-07 09:41] LABS: ALBUMIN 3.4 g/dL (3.5-5.0); ALBUMIN/GLOBULIN RATIO 1.2 (0.8-2.0); ANION GAP 17.3 mmol/L (8-16); CALCIUM 8.5 mg/dL (8.4-10.2); CREATININE, SERUM 1.58 mg/dL (0.72-1.25); POTASSIUM 3.3 mmol/L (3.5-5.1)
[2020-06-07 09:47] LABS: CREATINE KINASE MB 4.7 ng/mL (0-5.0)
[2020-06-07] MEDS: CEFEPIME 1GM/NS 0.9% 50 ML 50 ML IV SCH (11:05)
[2020-06-07] MEDS: DOCUSATE SODIUM 100 MG CAP PO SCH (11:05)
[2020-06-07] MEDS ORDERED: POTASSIUM CHLORIDE 20 MEQ TAB CR PO ONE (11:30)
[2020-06-07 12:27] LABS: EOSINOPHILS % (MANUAL) 1 % (0-7); LYMPHOCYTES % (MANUAL) 6 % (19-48); MONOCYTES % (MANUAL) 6 % (3.4-9.0); NEUTROPHILS % (MANUAL) 87 % (40-74)
[2020-06-07 12:28] LABS: HYPOCHROMASIA MODE; PLATELET ESTIMATE ADEQUATE; PLATELET MORPHOLOGY COMMENT FEW LARGE; POLYCHROMASIA MODERATE; STOMATOCYTES SLIGHT
[2020-06-07 13:20] VITALS: BP 160/78
[2020-06-07 14:54] LABS: CREATINE KINASE MB 4.1 ng/mL (0-5.0)
[2020-06-07 15:30] VITALS: BP 151/69
[2020-06-07 20:00] VITALS: BP 135/63
[2020-06-07] MEDS: ATORVASTATIN 20 MG TAB PO SCH (21:00)
[2020-06-07] MEDS: NIFEDIPINE CR 30 MG TAB PO SCH (21:00)
[2020-06-07] MEDS: BACITRACIN ZINC 0.9GM TP SCH (21:00)
[2020-06-07 21:54] LABS: CREATINE KINASE MB 2.8 ng/mL (0-5.0)
[2020-06-07 21:56] VITALS: BP 135/63
[2020-06-08] VITALS (16 sets, daily range): BP systolic 116–180; BP diastolic 47–88
[2020-06-08 06:56] LABS: ALBUMIN 2.9 g/dL (3.5-5.0); ANION GAP 15.5 mmol/L (8-16); CALCIUM 8.3 mg/dL (8.4-10.2); CREATININE, SERUM 1.49 mg/dL (0.72-1.25); POTASSIUM 4.5 mmol/L (3.5-5.1)
[2020-06-08 07:36] LABS: CREATINE KINASE MB 2.1 ng/mL (0-5.0)
[2020-06-08 08:29] LABS: BASOPHILS % 0.3 % (0.0-1.0); EOSINOPHILS # (AUTO) 0.3 (0.0-0.4); EOSINOPHILS % 4.2 % (0.0-6.0); HEMATOCRIT 23.4 % (38.2-49.6); HEMOGLOBIN 7.5 g/dL (14.0-18.0); LYMPHOCYTES # (AUTO) 0.1 (1.0-3.2); LYMPHOCYTES % 2.1 % (18.0-39.1); MEAN CORPUSCULAR HEMOGLOBIN 33.3 pg (28-32); MEAN CORPUSCULAR HGB CONC 32.1 g/dL (31-35); MONOCYTES # (AUTO) 0.2 (0.2-0.8); MONOCYTES % 3.1 % (4.4-11.3); NEUTROPHILS % 88.7 % (38.7-80.0); PLATELET COUNT 243 x10e3/uL (140-360); RED BLOOD COUNT 2.25 x10e6/uL (4.3-5.7); RED CELL DISTRIBUTION WIDTH 19.5 % (11.7-14.4)
[2020-06-08] MEDS: METOPROLOL SUCCINATE 50 MG TAB XL PO SCH (09:00)
[2020-06-08] MEDS: NIFEDIPINE CR 30 MG TAB PO SCH ×2 (09:00→21:32)
[2020-06-08] MEDS: DOCUSATE SODIUM 100 MG CAP PO SCH ×2 (09:00→17:28)
[2020-06-08] MEDS: SENNOSIDES 8.6 MG TAB PO SCH (09:00)
[2020-06-08] MEDS ORDERED: LORATADINE 10 MG TAB PO SCH (09:00)
[2020-06-08] MEDS: LORATADINE 10 MG TAB PO SCH (09:00)
[2020-06-08] MEDS: OLMESARTAN 20 MG TAB PO SCH (09:00)
[2020-06-08] MEDS: PANTOPRAZOLE SOD 40 MG TABEC PO SCH (09:00)
[2020-06-08] MEDS: CEFEPIME 1GM/NS 0.9% 50 ML 50 ML IV SCH (10:25)
[2020-06-08] MEDS: BALSAM PERU/CASTOR OIL 60 GM OINT...G. TP SCH (10:25)
[2020-06-08] MEDS: BACITRACIN ZINC 0.9GM TP SCH ×2 (10:25→21:31)
[2020-06-08] MEDS ORDERED: HEPARIN SOD (PORCINE) 1000 UNIT/ML 30ML ONE (11:00)
[2020-06-08] MEDS ORDERED: HEPARIN SOD/SOD CHLORIDE 2,000 ML ONE (11:01)
[2020-06-08] MEDS ORDERED: LIDOCAINE HCL 2% LOCAL 20 ML VIAL ONE (11:01)
[2020-06-08] MEDS ORDERED: FENTANYL CITRATE/PF 100MCG/2 ML INJ ONE (11:01)
[2020-06-08] MEDS ORDERED: MIDAZOLAM HCL 2 MG/2 ML VIAL ONE (11:01)
[2020-06-08] MEDS ORDERED: IOPAMIDOL 300MG/ML 100 ML INFUS..BTL IV ONE (11:02)
[2020-06-08] MEDS ORDERED: SODIUM CHLORIDE 0.9% 1000ML 1,000 ML ONE (11:02)
[2020-06-08] MEDS ORDERED: SODIUM CHLORIDE 0.9% 50ML 50 ML ONE (12:29)
[2020-06-08] MEDS ORDERED: PROTAMINE SULFATE 10 MG/ML 5 ML VIAL ONE (12:29)
[2020-06-08] MEDS: ATORVASTATIN 20 MG TAB PO SCH (21:31)
[2020-06-08] MEDS: TRAMADOL HCL 50 MG TAB PO PRN (21:32)
[2020-06-09] VITALS (8 sets, daily range): BP systolic 110–147; BP diastolic 49–108
[2020-06-09] MEDS: BALSAM PERU/CASTOR OIL 60 GM OINT...G. TP SCH (09:00)
[2020-06-09] MEDS: BACITRACIN ZINC 0.9GM TP SCH ×2 (09:00→20:27)
[2020-06-09] MEDS: DOCUSATE SODIUM 100 MG CAP PO SCH ×2 (09:59→16:12)
[2020-06-09] MEDS: LORATADINE 10 MG TAB PO SCH (09:59)
[2020-06-09] MEDS: SENNOSIDES 8.6 MG TAB PO SCH (09:59)
[2020-06-09] MEDS: METOPROLOL SUCCINATE 50 MG TAB XL PO SCH (09:59)
[2020-06-09] MEDS: OLMESARTAN 20 MG TAB PO SCH (09:59)
[2020-06-09] MEDS: CEFEPIME 1GM/NS 0.9% 50 ML 50 ML IV SCH (10:00)
[2020-06-09] MEDS: NIFEDIPINE CR 30 MG TAB PO SCH ×2 (10:00→20:27)
[2020-06-09] MEDS: PANTOPRAZOLE SOD 40 MG TABEC PO SCH (10:00)
[2020-06-09] MEDS: TRAMADOL HCL 50 MG TAB PO PRN (13:40)
[2020-06-09] MEDS ORDERED: ASPIRIN 81 MG ENTERIC COATED PO NR (15:30)
[2020-06-09] MEDS: ATORVASTATIN 20 MG TAB PO SCH (20:26)
[2020-06-10] VITALS (8 sets, daily range): BP systolic 105–135; BP diastolic 51–72
[2020-06-10] MEDS: TRAMADOL HCL 50 MG TAB PO PRN ×2 (00:39→09:56)
[2020-06-10] MEDS: DOCUSATE SODIUM 100 MG CAP PO SCH ×2 (09:00→17:00)
[2020-06-10] MEDS: SENNOSIDES 8.6 MG TAB PO SCH (09:00)
[2020-06-10] MEDS: ASPIRIN 81 MG ENTERIC COATED PO SCH (09:51)
[2020-06-10] MEDS: OLMESARTAN 20 MG TAB PO SCH (09:53)
[2020-06-10] MEDS: NIFEDIPINE CR 30 MG TAB PO SCH ×2 (09:54→21:00)
[2020-06-10] MEDS: LORATADINE 10 MG TAB PO SCH (09:54)
[2020-06-10] MEDS: METOPROLOL SUCCINATE 50 MG TAB XL PO SCH (09:55)
[2020-06-10] MEDS: PANTOPRAZOLE SOD 40 MG TABEC PO SCH (09:55)
[2020-06-10] MEDS: BACITRACIN ZINC 0.9GM TP SCH ×2 (09:56→21:00)
[2020-06-10] MEDS: BALSAM PERU/CASTOR OIL 60 GM OINT...G. TP SCH (09:57)
[2020-06-10] MEDS: CEFEPIME 1GM/NS 0.9% 50 ML 50 ML IV SCH (12:36)
[2020-06-10] MEDS ORDERED: HEPARIN 25,000 UNIT DRIP IV ONE (15:16)
[2020-06-10] MEDS ORDERED: HEPARIN SOD (PORCINE) 5,000 UNIT/ML VIAL IV ONE (15:30)
[2020-06-10] MEDS ORDERED: HEPARIN 25,000 UNIT 1,000 UNIT in DEXTROSE 5% 250ML 250 ML IV SCH (15:35)
[2020-06-10] MEDS: FUROSEMIDE INJ 10 MG/ML 4 ML VIAL IV SCH (18:02)
[2020-06-10] MEDS: ATORVASTATIN 20 MG TAB PO SCH (21:00)
[2020-06-10] MEDS: HEPARIN 25,000 UNIT 1,000 UNIT in DEXTROSE 5% 250ML 250 ML IV SCH (23:00)
[2020-06-11] VITALS (7 sets, daily range): BP systolic 129–142; BP diastolic 55–65
[2020-06-11] MEDS: DOCUSATE SODIUM 100 MG CAP PO SCH ×2 (09:00→17:00)
[2020-06-11] MEDS: SENNOSIDES 8.6 MG TAB PO SCH (09:00)
[2020-06-11] MEDS: ASPIRIN 81 MG ENTERIC COATED PO SCH (09:26)
[2020-06-11] MEDS: FUROSEMIDE INJ 10 MG/ML 4 ML VIAL IV SCH ×2 (09:26→17:54)
[2020-06-11] MEDS: OLMESARTAN 20 MG TAB PO SCH (09:27)
[2020-06-11] MEDS: LORATADINE 10 MG TAB PO SCH (09:27)
[2020-06-11] MEDS: NIFEDIPINE CR 30 MG TAB PO SCH ×2 (09:28→21:00)
[2020-06-11] MEDS: METOPROLOL SUCCINATE 50 MG TAB XL PO SCH (09:29)
[2020-06-11] MEDS: PANTOPRAZOLE SOD 40 MG TABEC PO SCH (09:29)
[2020-06-11] MEDS: BACITRACIN ZINC 0.9GM TP SCH ×2 (09:29→21:00)
[2020-06-11] MEDS: BALSAM PERU/CASTOR OIL 60 GM OINT...G. TP SCH (09:30)
[2020-06-11] MEDS ORDERED: HEPARIN 25,000 UNIT DRIP IV ONE (12:10)
[2020-06-11] MEDS: HEPARIN 25,000 UNIT 1,000 UNIT in DEXTROSE 5% 250ML 250 ML IV SCH (12:30)
[2020-06-11] MEDS: CEFEPIME 1GM/NS 0.9% 50 ML 50 ML IV SCH (12:53)
[2020-06-11 17:35] LABS: ANION GAP 15.8 mmol/L (8-16); CALCIUM 8.2 mg/dL (8.4-10.2); CREATININE, SERUM 1.55 mg/dL (0.72-1.25); POTASSIUM 3.8 mmol/L (3.5-5.1)
[2020-06-11] MEDS: ATORVASTATIN 20 MG TAB PO SCH (21:00)
[2020-06-12] VITALS (9 sets, daily range): BP systolic 127–150; BP diastolic 53–65
[2020-06-12 06:23] LABS: BASOPHILS % 0.7 % (0.0-1.0); EOSINOPHILS # (AUTO) 0.4 (0.0-0.4); EOSINOPHILS % 6.3 % (0.0-6.0); HEMATOCRIT 26.2 % (38.2-49.6); HEMOGLOBIN 8.4 g/dL (14.0-18.0); LYMPHOCYTES # (AUTO) 0.3 (1.0-3.2); LYMPHOCYTES % 4.3 % (18.0-39.1); MEAN CORPUSCULAR HEMOGLOBIN 33.2 pg (28-32); MEAN CORPUSCULAR HGB CONC 32.1 g/dL (31-35); MEAN CORPUSCULAR VOLUME 103.6 fL (81-99); MONOCYTES # (AUTO) 0.3 (0.2-0.8); MONOCYTES % 5.1 % (4.4-11.3); NEUTROPHILS # (AUTO) 4.7 (2.1-6.9); NEUTROPHILS % 80.9 % (38.7-80.0); PLATELET COUNT 349 x10e3/uL (140-360); RED BLOOD COUNT 2.53 x10e6/uL (4.3-5.7); RED CELL DISTRIBUTION WIDTH 18.7 % (11.7-14.4)
[2020-06-12 06:29] LABS: CALCIUM 8.4 mg/dL (8.4-10.2); CREATININE, SERUM 1.55 mg/dL (0.72-1.25)
[2020-06-12 10:01] LABS: EOSINOPHILS % (MANUAL) 6 % (0-7); LYMPHOCYTES % (MANUAL) 3 % (19-48); MONOCYTES % (MANUAL) 4 % (3.4-9.0); NEUTROPHILS % (MANUAL) 87 % (40-74)
[2020-06-12 10:02] LABS: ANISOCYTOSIS SLIGHT; PLATELET ESTIMATE ADEQUATE; PLATELET MORPHOLOGY COMMENT NORMAL; POLYCHROMASIA FEW; RBC MORPHOLOGY COMMENT NORMAL
[2020-06-12] MEDS: FUROSEMIDE INJ 10 MG/ML 4 ML VIAL IV SCH ×2 (10:23→18:25)
[2020-06-12] MEDS: ASPIRIN 81 MG ENTERIC COATED PO SCH (10:23)
[2020-06-12] MEDS: DOCUSATE SODIUM 100 MG CAP PO SCH ×2 (10:24→17:00)
[2020-06-12] MEDS: NIFEDIPINE CR 30 MG TAB PO SCH ×2 (10:24→20:50)
[2020-06-12] MEDS: LORATADINE 10 MG TAB PO SCH (10:24)
[2020-06-12] MEDS: OLMESARTAN 20 MG TAB PO SCH (10:24)
[2020-06-12] MEDS: PANTOPRAZOLE SOD 40 MG TABEC PO SCH (10:25)
[2020-06-12] MEDS: SENNOSIDES 8.6 MG TAB PO SCH (10:25)
[2020-06-12] MEDS: BACITRACIN ZINC 0.9GM TP SCH ×2 (10:25→20:51)
[2020-06-12] MEDS: METOPROLOL SUCCINATE 50 MG TAB XL PO SCH (10:25)
[2020-06-12] MEDS: BALSAM PERU/CASTOR OIL 60 GM OINT...G. TP SCH (10:26)
[2020-06-12] MEDS: HEPARIN 25,000 UNIT 1,000 UNIT in DEXTROSE 5% 250ML 250 ML IV SCH (12:37)
[2020-06-12] MEDS: CEFEPIME 1GM/NS 0.9% 50 ML 50 ML IV SCH (15:05)
[2020-06-12] MEDS: ATORVASTATIN 20 MG TAB PO SCH (20:50)
[2020-06-13] VITALS (7 sets, daily range): BP systolic 125–163; BP diastolic 52–68
[2020-06-13] MEDS: HEPARIN 25,000 UNIT 1,000 UNIT in DEXTROSE 5% 250ML 250 ML IV SCH (05:04)
[2020-06-13] MEDS ORDERED: HEPARIN 25,000 UNIT DRIP IV ONE ×2 (05:11→19:42)
[2020-06-13 06:37] LABS: CHOL/HDL RATIO 4.5 (3.9-4.7)
[2020-06-13] MEDS: FUROSEMIDE INJ 10 MG/ML 4 ML VIAL IV SCH ×2 (10:00→18:03)
[2020-06-13] MEDS: ASPIRIN 81 MG ENTERIC COATED PO SCH (10:00)
[2020-06-13] MEDS: NIFEDIPINE CR 30 MG TAB PO SCH ×2 (10:01→20:58)
[2020-06-13] MEDS: METOPROLOL SUCCINATE 50 MG TAB XL PO SCH (10:01)
[2020-06-13] MEDS: LORATADINE 10 MG TAB PO SCH (10:01)
[2020-06-13] MEDS: BACITRACIN ZINC 0.9GM TP SCH ×2 (10:01→20:59)
[2020-06-13] MEDS: SENNOSIDES 8.6 MG TAB PO SCH (10:01)
[2020-06-13] MEDS: OLMESARTAN 20 MG TAB PO SCH (10:01)
[2020-06-13] MEDS: BALSAM PERU/CASTOR OIL 60 GM OINT...G. TP SCH (10:01)
[2020-06-13] MEDS: PANTOPRAZOLE SOD 40 MG TABEC PO SCH (10:01)
[2020-06-13] MEDS: DOCUSATE SODIUM 100 MG CAP PO SCH ×2 (10:01→18:03)
[2020-06-13 10:30] LABS: BASOPHILS % 0.6 % (0.0-1.0); EOSINOPHILS # (AUTO) 0.2 (0.0-0.4); EOSINOPHILS % 3.8 % (0.0-6.0); HEMOGLOBIN 7.9 g/dL (14.0-18.0); LYMPHOCYTES # (AUTO) 0.2 (1.0-3.2); LYMPHOCYTES % 3.1 % (18.0-39.1); MEAN CORPUSCULAR HEMOGLOBIN 32.8 pg (28-32); MEAN CORPUSCULAR HGB CONC 31.6 g/dL (31-35); MEAN CORPUSCULAR VOLUME 103.7 fL (81-99); MONOCYTES # (AUTO) 0.3 (0.2-0.8); MONOCYTES % 5.4 % (4.4-11.3); NEUTROPHILS # (AUTO) 4.5 (2.1-6.9); NEUTROPHILS % 85.4 % (38.7-80.0); PLATELET COUNT 328 x10e3/uL (140-360); RED BLOOD COUNT 2.41 x10e6/uL (4.3-5.7); RED CELL DISTRIBUTION WIDTH 19.1 % (11.7-14.4)
[2020-06-13 10:55] LABS: ANION GAP 14.2 mmol/L (8-16); CALCIUM 8.2 mg/dL (8.4-10.2); CREATININE, SERUM 1.52 mg/dL (0.72-1.25); POTASSIUM 4.2 mmol/L (3.5-5.1)
[2020-06-13] MEDS: CEFEPIME 1GM/NS 0.9% 50 ML 50 ML IV SCH (14:01)
[2020-06-13] MEDS ORDERED: PLAVIX75 MG PO (19:53)
[2020-06-13] MEDS ORDERED: MULTIVITAMINS1 EAC6 PO (19:56)
[2020-06-13] MEDS ORDERED: FERROUS SULFAT325 M1 PO (19:56)
[2020-06-13] MEDS ORDERED: LOVENOX30 MG/0.3 SC (19:56)
[2020-06-13] MEDS: ATORVASTATIN 20 MG TAB PO SCH (20:58)
[2020-06-14] MEDS ORDERED: OLMESARTAN 20 MG TAB PO SCH (09:00)
== END 2020-06-13 22:18 | DRG 280 ==
LOC: ER 08:21 → ERHOLD 09:07 → MED/SURG3 13:37 → OBSVTOIN 06-08 14:54
PROVIDERS: ADMIT Internal Medicine; ATTEND Internal Medicine
PROC: B41D1ZZ Fluoroscopy of Aorta and Bilateral Lower Extremity Arteries using Low Osmolar Contrast (ICD-10-PCS; principal; 2020-06-08)
DX: E11.51 Type 2 diabetes mellitus with diabetic peripheral angiopathy without gangrene (principal); I21.A1 Myocardial infarction type 2; J18.9 Pneumonia, unspecified organism; K56.609 Unspecified intestinal obstruction, unspecified as to partial versus complete obstruction; N39.0 Urinary tract infection, site not specified; I13.0 Hypertensive heart and chronic kidney disease with heart failure and stage 1 through stage 4 chronic kidney disease, or unspecified chronic kidney disease; I50.30 Unspecified diastolic (congestive) heart failure; I70.221 Atherosclerosis of native arteries of extremities with rest pain, right leg; I77.1 Stricture of artery; E66.9 Obesity, unspecified; Z68.32 Body mass index [BMI] 32.0-32.9, adult; E78.5 Hyperlipidemia, unspecified; I25.10 Atherosclerotic heart disease of native coronary artery without angina pectoris; I25.2 Old myocardial infarction; N18.30 Chronic kidney disease, stage 3 unspecified; E11.22 Type 2 diabetes mellitus with diabetic chronic kidney disease
CPT/HCPCS: 36247; 36415; 71045; 75630; 80048; 80053; 80061; 82550; 82553; 82948; 83735; 83880; 84484; 85025; 85610; 85730; 93005; 93925; 97139; 99152; 99284; C1769; G0378; J0692; J1644; J1940; J2001; J2250; J2270; J2405; J2720; J3010; J7030; Q9967; U0002